=== PATIENT | female | born 1955 | race Caucasian/White ===

== ENCOUNTER 2023-10-27 14:00 | Outpatient (OUT) | payer MEDICARE, OTHER, SELFPAY ==
[2023-10-27 15:01] LABS: Basophils Absolute Auto 0.1 10^3/uL (0.0-0.1); Basophils Percent Auto 0.8 % (0.2-2.0); Eosinophils Absolute Auto 0.1 10^3/uL (0.0-0.7); Eosinophils Percent Auto 1.3 % (0.9-7.0); Hematocrit 41.2 % (36.0-48.0); Hemoglobin 13.6 g/dL (12.0-16.0); Immature Granulocytes Abs Auto 0.01 10^3/uL (0.00-0.03); Immature Granulocytes Pct Auto 0.2 % (0.0-0.5); Lymphocytes Absolute Auto 2.4 10^3/uL (1.2-3.8); Lymphocytes Percent Auto 38.1 % (20.5-60.0); Mean Corpuscular Hemoglobin 28.8 pg (26.7-34.0); Mean Corpuscular Volume 87.3 fL (81.0-99.0); Mean Platelet Volume 10.8 fL (9.5-13.5); Monocytes Absolute Auto 0.6 10^3/uL (0.3-0.8); Monocytes Percent Auto 9.8 % (1.7-12.0); Neutrophils Absolute Auto 3.1 10^3/uL (1.4-6.5); Neutrophils Percent Auto 49.8 % (43.0-75.0); Platelet Count 230 10^3/uL (150-450); Red Blood Count 4.72 10^6/uL (4.20-5.40); Red Cell Distribution Width 12.5 % (11.0-15.0); White Blood Count 6.3 10^3/uL (4.0-11.0)
[2023-10-27 15:02] LABS: Estimated Average Glucose 120 mg/dL; Glycohemoglobin A1C 5.8 % (4.5-6.2)
[2023-10-27 16:01] LABS: Alanine Aminotransferase 26 U/L (14-59); Albumin Globulin Ratio 1.2; Albumin Level 4.1 g/dL (3.4-5.0); Alkaline Phosphatase 72 U/L (46-116); Anion Gap 12.3; Aspartate Amino Transferase 20 U/L (15-37); BUN Creatinine Ratio 14.7; Bilirubin Total 0.7 mg/dL (0.2-1.0); Calcium 9.2 mg/dL (8.5-10.1); Carbon Dioxide 29.9 mmol/L (21.0-32.0); Chloride 105 mmol/L (98-107); Chol HDL Ratio 3.6; Cholesterol 242 mg/dL (<=200); Estimated GFR (African America >60 (>=60); Estimated GFR (Non-African Ame >60 (>=60); Free T3 2.72 pg/mL (2.18-3.98); Globulin 3.5 g/dL; Glucose 92 mg/dL (74-106); HDL Cholesterol 68 mg/dL (40-60); Potassium 4.2 mmol/L (3.5-5.1); Sodium 143 mmol/L (136-145); Thyroid Stimulating Hormone 2.705 uIU/mL (0.358-3.740); Total Protein 7.6 g/dL (6.4-8.2); Triglycerides 146 mg/dL (<=150); VLDL CHOLESTEROL 29.2 mg/dL
== END 2023-10-27 14:01 | disposition home or self-care (01) ==
LOC: LAB 14:03
PROVIDERS: PCP Family Medicine; Visit Provider Family Medicine
DX: J45.909 Unspecified asthma, uncomplicated (principal); I10 Essential (primary) hypertension; E78.00 Pure hypercholesterolemia, unspecified; R73.09 Other abnormal glucose; D64.9 Anemia, unspecified
CPT/HCPCS: 36415; 80053; 80061; 83036; 83540; 84436; 84443; 84481; 85025

== ENCOUNTER 2023-11-03 07:54 | Outpatient (OUT) | payer MEDICARE, OTHER, SELFPAY ==
--- NOTE | 2023-11-03 07:56 | MM_ITS ---
Patient Name: ADRIEN STATON MR#: [id number] : 1955 Exam Date: 11/03/2023 Ordering Doctor: DR KYARA MENSAH . RADIOLOGY REPORT PROCEDURE: MM TOMOSYNTHESIS SCREENING BI COMPARISON: MG MAMM SCREEN 3D JAYSON CAD, 04/23/2022. MG MAMM SCREEN 3D JAYSON CAD, 03/26/2021. MG MAMM SCREEN JAYSON W CAD, 01/12/2020. MG MAMM JAYSON SCRN W CAD DIG, 10/17/2013. INDICATIONS: Screening Calculator Name NCI Breast Cancer Risk Assessment Tool 5 Year Breast Cancer Risk 1.60% Lifetime Breast Cancer Risk 5.70% Personal Breast Cancer No Personal Ovarian Cancer No Treatments RLL removed Family Cancers Father with prostate cancer at age ~55. LOCATION: [facility] BREAST COMPOSITION: Heterogeneously dense,which may obscure small masses. FINDINGS: DIAGNOSTIC CATEGORY 2--BENIGN FINDING: RIGHT BREAST: No significant suspicious finding. Stable lymph node versus chronic nodule within subareolar medial breast. No significant change has occurred. LEFT BREAST: No significant suspicious finding. No significant change has occurred. RECOMMENDATIONS: ROUTINE MAMMOGRAM AND CLINICAL EVALUATION IN 12 MONTHS. PLEASE NOTE: A NORMAL MAMMOGRAM DOES NOT EXCLUDE THE POSSIBILITY OF BREAST CANCER. A CLINICALLY SUSPICIOUS PALPABLE LUMP SHOULD BE BIOPSIED. Dictated by: Pablito Banks M.D. on 11/04/2023 at 07:38 Approved by: Pablito Banks M.D. on 11/04/2023 at 07:42
--- OUTSIDE RECORDS SUMMARY | 2023-11-03 07:57 | XMS_ITS | CCD ---
Author Name Unknown Address [address] [place] [address] Organization [facility] Care Team Providers Care Fitness Management Director Name Role Phone Margaret Dodge Unavailable Unavailable Kyara Castro Unavailable Unavailable Margaret Dodge Unavailable Unavailable Kyara Castro Unavailable Unavailable RODRICK, DR SPARROW Primary Care Unavailable HOY, DR SPARROW Admitting Unavailable HOY, DR SPARROW Attending Unavailable MIKHAILY, DR SPARROW Consulting Unavailable RODRICK, DR SPARROW Primary Care Unavailable MIKHAILY, DR SPARROW Admitting Unavailable HOY, DR SPARROW Attending Unavailable HOY, DR SPARROW Consulting Unavailable MIKHAILY, DR SPARROW Primary Care Unavailable HOMariah, DR SPARROW Admitting Unavailable HOY, DR SPARROW Attending Unavailable WEST, DR GABRIEL Vicente Consulting Unavailable Kyara Castro Primary Care Unavailable Sahil Balderas Attending Unavailable Sahil Balderas Admitting Unavailable Eliel Haines Attending Unavaila Jai Guevara Attending Unavailable Kyara Castro Referring Unavailable Allergies Allergy Classification Reported Allergen(s) Allergy Type Date of Onset Reaction(s) Facility (2 sources) Sertraline Drug Allergy 05-05-2017 [facility] Repository (2 sources) Ciprofloxacin; Translations: [ciprofloxacin] Drug Allergy 09-07-2018 [facility] Medications Current Medications Medication Drug Class(es) Dates Sig (Normalized) Sig (Original) [id number] 200 actuat albuterol 0.09 mg/actuat metered dose inhaler (1 source) beta2-Adrenergic Agonist Start: 07-21-2018 take 1 puff(s) by inhalation every four to six hours Albuterol Sulfate (Proair Hfa) 90 mcg/actuation Hfa Aerosol Inhaler Active 2 PUFF INHALATION EVERY 4-6 HOURS July 21, 2018 1:00am metoprolol tartrate 25 mg oral tablet (1 source) beta-Adrenergic Judy Start: 2018 take 25 mg by mouth twice daily Metoprolol Tartrate Active 25 MG PO Twice daily 2018 1:00am omeprazole 40 mg delayed release oral capsule (1 source) Proton Pump Inhibitor Start: 2018 take 40 mg by mouth once daily Omeprazole Active 40 MG PO Daily 2018 1:00am Completed/Discontinued Medications Medication Drug Class(es) Dates Sig (Normalized) Sig (Original) acetaminophen 325 mg / HYDROcodone bitartrate 5 mg oral tablet (1 source) Opioid Agonist Start: 09-14-2018 End: 09-11-2019 take 2 tablets by mouth four times daily Hydrocodone-Acetam inophen Discontinued 2 TAB PO Four times daily 56 September 14, 2018 1:00am September 11, 2019 4:03pm amiodarone hydrochloride 200 mg oral tablet (1 source) Antiarrhythmic Start: 09-14-2018 End: 09-11-2019 take 200 mg by mouth twice daily Amiodarone Discontinued 200 MG PO Twice daily 90 September 14, 2018 1:00am September 11, 2019 4:03pm chlorhexidine gluconate 1.2 mg/ml mouthwash (1 source) Start: 09-14-2018 End: 09-11-2019 Chlorhexidine Gluconate Discontinued 15 ML MUCOUS MEM Three times daily 1 September 14, 2018 1:00am September 11, 2019 4:03pm raNITIdine 150 mg oral tablet (1 source) Histamine-2 Receptor Antagonist Start: 2018 End: 07-21-2018 take 150 mg by mouth twice daily Ranitidine Hcl Discontinued 150 MG PO Twice daily 2018 1:00am July 21, 2018 11:58am sulfamethoxazole 800 mg / trimethoprim 160 mg oral tablet (1 source) Dihydrofolate Reductase Inhibitor Antibacterial, Sulfonamide Antimicrobial Start: 09-14-2018 End: 09-26-2018 take 1 tablet by mouth twice daily Sulfamethoxazole-T rimethoprim Discontinued 1 TAB PO Twice daily 20 September 14, 2018 1:00am September 26, 2018 4:02pm Problems Problem Classification Problem Date Documented Date Episodic/Chronic Asthma (1 source) Asthma; Translations: [Unspecified asthma, uncomplicated] 07-21-2018 Chronic Cancer of bronchus; lung (2 sources) Malignant neoplasm of lower lobe, right bronchus or lung; Translations: [Primary adenocarcinoma of lower lobe of right lung] Onset: 04-24-2022 09-11-2019 Chronic Cardiac dysrhythmias (1 source) Atrial fibrillation with rapid ventricular response; Translations: [Unspecified atrial fibrillation] 09-11-2019 Chronic Cardiac dysrhythmias (1 source) Palpitations; Translations: [Palpitations] 09-11-2019 Episodic Gastroduodenal ulcer (except hemorrhage) (1 source) Peptic ulcer; Translations: [Peptic ulcer, site unspecified, unspecified as acute or chronic, without hemorrhage or perforation] 09-11-2019 Chronic Other connective tissue disease (1 source) Pain of left upper arm; Translations: [Pain in left upper arm] 09-11-2019 Episodic Other lower respiratory disease (1 source) Nodule of lung; Translations: [Solitary pulmonary nodule] 07-21-2018 Episodic Other screening for suspected conditions (not mental disorders or infectious disease) (4 sources) Encounter for screening mammogram for malignant neoplasm of breast; Translations: [ENC SCR MAMMO MALIG NEOPLASM BREAST] Onset: 04-23-2022 Episodic Residual codes; unclassified (1 source) Acquired absence of lung [part of]; Translations: [ACQUIRED ABSENCE OF LUNG] Onset: 04-24-2022 Episodic Residual codes; unclassified (1 source) History of lung lobectomy; Translations: [Acquired absence of lung [part of]] 09-11-2019 Episodic Results Test Name Value Interpretation Reference Range Facility Physician Referralon 024 Physician Referral [id number] [facility] Reminderson 06-29-2023 Reminders - From: Jennifer Calhoun MA To: Jennifer Calhoun MA; Sent: 06/24/2023 11:34:21 EDT Show up: 06/24/2023 11:34:00 EDT Subject: colon recall Reminder Message [address] Barger 06/23/13 first recall letter sent Patient refused appointment and is going somewhere else. Normal [facility] Patient Letter FTMCon 2022 Patient [place] [facility] [place] 24, 2023 ADRIEN WILD [address] [place] [address] : 1955 Dear Adrien, This is a reminder that you are due for an appointment with [facility]. Please contact our office at [phone] to schedule your 10 year colon recall Thank you, [facility] Normal [facility] CT ABDOMEN WO/W CONon 2021 CT ABDOMEN WO/W CON EXAMINATION: CT CHES T W CON, CT ABDOMEN WO/W CON HISTORY: Primary malignant neoplasm of lower lobe, bronchus or lung COMPARISON: 04/05/2021, 06/22/2018 TECHNIQUE: Axial, Coronal, and Sagittal CT images were obtained without and with IV contrast. Dose reduction techniques were achieved by using automated exposure control and/or adjustment of mA and/or kV according to patient size and/or use of iterative reconstruction technique. FINDINGS: LUNGS: Surgical clips from right lower lobectomy. Linear opacities in the right lung base postsurgical changes and/or scarring is favored. No new suspicious focal nodule or mass is observed. PLEURA: No mass or effusion. VASCULATURE: No visible pulmonary arterial thrombus or attenuation. RD: No mass or adenopathy. MEDIASTINUM: No mass or adenopathy. CARDIAC: No enlargement, pericardial thickening, or pericardial effusion. CHEST WALL: No mass or axillary adenopathy. LIVER: No enlargement, atrophy, abnormal density, or significant focal lesion. BILIARY: No dilatation or calcification. PANCREAS: No lesion, fluid collection, ductal dilatation, or atrophy. SPLEEN: No enlargement or focal lesion. ADRENALS: No mass or enlargement. KIDNEYS: No mass, obstruction, or calcification. BOWEL/MESENTERY: No visible mass, obstruction, or bowel wall thickening. AORTA/VASCULAR: No aneurysm. RETROPERITONEUM: No mass or adenopathy. ABDOMINAL WALL: No mass or hernia. BONES: No bony lesion or fracture. OTHER: Negative. IMPRESSION: Remote right lower lobe lobectomy No new evidence of metastatic disease to the chest or abdomen Electronically authenticated by: GABRIEL BOND Date: 2022-04-23 09:17 Normal [facility] MG MAMM SCREEN 3D JAYSON CADon 04-23-2022 MG MAMM SCREEN 3D JAYSON CAD Patient: ADRIEN STATON Exam Date: 04/23/2022 : 1955 Gender:F Ordering : DR KYARA CASTRO . Admission #: [id number] Family : Order #: [id number] CLICK HERE TO VIEW EXAM RADIOLOGY REPORT PROCEDURE: MAMMOGRAM SCREENING 3D BILATERAL CAD COMPARISON: MG MAMM SCREEN JAYSON W CAD, 01/12/2020. MG MAMM SCREEN 3D JAYSON CAD, 03/26/2021. INDICATIONS: Screening exam Calculator Name NCI Breast Cancer Risk Assessment Tool 5 Year Breast Cancer Risk 1.50% Lifetime Breast Cancer Risk 6.10% Personal Breast Cancer No Personal Ovarian Cancer No Treatments RLL removed Family Cancers Father with prostate cancer at age 55. LOCATION: [facility] BREAST COMPOSITION: Heterogeneously dense,which may obscure small masses. FINDINGS: DIAGNOSTIC CATEGORY 2--BENIGN FINDING. NO CHANGE FROM COMPARISON. Scattered benign-appearing calcifications are present. Scattered benign-appearing lymph nodes are present. RIGHT BREAST: No significant suspicious finding. Focal nodule lower inner anterior breast, stable LEFT BREAST: No significant suspicious finding. RECOMMENDATIONS: ROUTINE MAMMOGRAM AND CLINICAL EVALUATION IN 12 MONTHS. PLEASE NOTE: A NORMAL MAMMOGRAM DOES NOT EXCLUDE THE POSSIBILITY OF BREAST CANCER. A CLINICALLY SUSPICIOUS PALPABLE LUMP SHOULD BE BIOPSIED. Dictated by: Gabriel Bond MD on 04/23/2022 at 10:41 Approved by: Gabriel Bond MD on 04/23/2022 at 10:43 Normal [facility] CBC AUTO DIFFon 04-10-2022 BASO # 0.0 103/ul Normal 0.0-0.1 [facility] Comment on above: Performed By: #### C BC #### [facility] [address] [place] [address] Dr. Mariama Becerra Basophils/100 WBC (Bld) 0.6 % Normal 0.2-2.0 [facility] Comment on above: Performed By: #### C BC #### [facility] [address] [place] [address] Dr. Mariama Becerra EO # 0.1 103/ul Normal 0.0-0.7 [facility] Comment on above: Performed By: #### C BC #### [facility] [address] [place] [address] Dr. Mariama Becerra Eosinophils/100 WBC (Bld) 1.5 % Normal 0.9-7.0 [facility] Comment on above: Performed By: #### C BC #### [facility] [address] [place] [address] Dr. Mariama Becerra Erythrocyte distribution width (RBC) [Ratio] 12.7 % Normal 11.0-15.0 [facility] Comment on above: Performed By: #### C BC #### [facility] [address] [place] [address] Dr. Mariama Becerra Hematocrit (Bld) [Volume fraction] 40.3 % Normal 36.0-48.0 [facility] Comment on above: Performed By: #### C BC #### [facility] [address] [place] [address] Dr. Mariama Becerra Hemoglobin (Bld) [Mass/Vol] 13.6 g/dL Normal 12.0-16.0 [facility] Comment on above: Performed By: #### C BC #### [facility] [address] [place] [address] Dr. Mariama Becerra IG # 0.02 10e3/ul Normal 0.00-0.03 [facility] Comment on above: Performed By: #### C BC #### [facility] [address] [place] [address] Dr. Mariama Becerra IG % 0.4 % Normal 0.0-0.5 [facility] Comment on above: Performed By: #### C BC #### [facility] [address] [place] [address] Dr. Mariama Becerra LYMPH # 1.9 103/ul Normal 1.2-3.8 [facility] Comment on above: Performed By: #### C BC #### [facility] [address] [place] [address] Dr. Mariama Becerra Lymphocytes/100 WBC (Bld) 34.9 % Normal 20.5-60.0 [facility] Comment on above: Performed By: #### C BC #### [facility] [address] [place] [address] Dr. Mariama Becerra MANUAL DIFF REQ NO Normal [facility] Comment on above: Performed By: #### C BC #### [facility] [address] [place] [address] Dr. Mariama Becerra MCH (RBC) [Entitic mass] 29.4 pg Normal 26.7-34.0 [facility] Comment on above: Performed By: #### C BC #### [facility] [address] [place] [address] Dr. Mariama Becerra MCHC (RBC) [Mass/Vol] 33.7 g/dL Normal 29.9-35.2 [facility] Comment on above: Performed By: #### C BC #### [facility] [address] [place] [address] Dr. Mariama Becerra MCV (RBC) [Entitic vol] 87.0 fL Normal 81.0-99.0 [facility] Comment on above: Performed By: #### C BC #### [facility] [address] [place] [address] Dr. Mariama Becerra MONO # 0.6 103/ul Normal 0.3-0.8 [facility] Comment on above: Performed By: #### C BC #### [facility] [address] [place] [address] Dr. Mariama Becerra Monocytes/100 WBC (Bld) 11.2 % Normal 1.7-12.0 [facility] Comment on above: Performed By: #### C BC #### [facility] [address] [place] [address] Dr. Mariama Becerra NEUT # 2.8 103/ul Normal 1.4-6.5 [facility] Comment on above: Performed By: #### C BC #### [facility] [address] [place] [address] Dr. Mariama Becerra Neutrophils/100 WBC (Bld) 51.4 % Normal 43.0-75.0 [facility] Comment on above: Performed By: #### C BC #### [facility] [address] [place] [address] Dr. Mariama Becerra Platelet mean volume (Bld) [Entitic vol] 9.9 fL Normal 9.5-13.5 [facility] Comment on above: Performed By: #### C BC #### [facility] [address] [place] [address] Dr. Mariama Becerra PLT 217 103/ul Normal 150-450 [facility] Comment on above: Performed By: #### C BC #### [facility] [address] [address] [address] Mariama Becerra RBC 4.63 106/ul Normal 4.20-5.40 [facility] Comment on above: Performed By: #### C BC #### [facility] [address] [place] [address] Dr. Mariama Becerra WBC 5.4 103/ul Normal 4.0-11.0 [facility] Comment on above: Performed By: #### C BC #### [facility] [address] [place] [address] Dr. Mariama Becerra FREE THYROXINE INDEX T7on FTI 2.81 Normal 1.30-4.50 [facility] Comment on above: Performed By: #### T SH, T7, LIPID, CMP #### [facility] [address] [place] [address] Dr. Mariama Becerra T3U 33.0 % Normal 30.0-39.0 [facility] Comment on above: Performed By: #### T SH, T7, LIPID, CMP #### [facility] [address] [place] [address] Dr. Mariama Becerra T4 [Mass/Vol] 8.50 ug/dL Normal 4.80-13.90 [facility] Comment on above: Performed By: #### T SH, T7, LIPID, CMP #### [facility] [address] [place] [address] Dr. Mariama Becerra GLYCOHEMOGLOBIN A1Con 2021 ADA RECOMMENDATION SEE BELOW Normal [facility] Comment on above: Result Comment: ADA RECOMMENDED LIMIT 4.0 - 6.0 ADA THERAPEUTIC TARGET < 7.0 ACTION SUGGESTED > 7.0 Performed By: #### A 1C #### [facility] [address] [address] [address] Mariama Becerra Glucose [Mass/Vol] 117 mg/dL Normal [facility] Comment on above: Performed By: #### A 1C #### [facility] [address] [place] [address] Dr. Mariama Becerra HbA1c (Bld) [Mass fraction] 5.7 % Normal 4.5-6.2 [facility] Comment on above: Performed By: #### A 1C #### [facility] [address] [place] [address] Dr. Mariama Becerra IRONon 04-10-2022 Iron [Mass/Vol] 88.0 ug/dL Normal 50.0-170.0 [facility] Comment on above: Performed By: #### I ANGEL #### [facility] [address] [place] [address] Dr. Mariama Becerra LIPID PROFILEon 04-10-2022 CHOL-HDL RATIO NORM SEE BELOW Normal [facility] Comment on above: Result Comment: 3.3 - 4.4 LOW RISK 4.4 - 7.1 AVERAGE RISK 7.1 - 11.0 MODERATE RISK >11.0 HIGH RISK Performed By: #### T SH, T7, LIPID, CMP #### [facility] [address] [place] [address] Dr. Mariama Becerra Cholesterol [Mass/Vol] 136 mg/dL Normal <=200 [facility] Comment on above: Performed By: #### T SH, T7, LIPID, CMP #### [facility] [address] [place] [address] Dr. Mariama Becerra Cholesterol in HDL [Mass/Vol] 63 mg/dL Critically high 40-60 [facility] Comment on above: Performed By: #### T SH, T7, LIPID, CMP #### [facility] [address] [place] [address] Dr. Mariama Becerra Cholesterol in LDL [Mass/Vol] 58.8 mg/dL Normal [facility] Comment on above: Performed By: #### T SH, T7, LIPID, CMP #### [facility] [address] [place] [address] Dr. Mariama Becerra Cholesterol.total/Cho lesterol in HDL [Mass ratio] 2.2 {ratio} Normal [facility] Comment on above: Performed By: #### T SH, T7, LIPID, CMP #### [facility] [address] [address] [address] Mariama Becerra HDL NORMAL > or = 60 mg/dl - LO W CARDIOVASCULAR RISK <40 mg/dl - HIGH CARDIOVASCULAR RISK Normal [facility] Comment on above: Performed By: #### T SH, T7, LIPID, CMP #### [facility] [address] [place] [address] Dr. Mariama Becerra LDL CALC NORMAL SEE BELOW Normal [facility] Comment on above: Result Comment: <100 mg/dl OPTIMAL 100 - 129 mg/dl NEAR OR ABOVE OPTIMAL 130 - 159 mg/dl BORDERLINE HIGH 160 - 189 mg/dl HIGH >190 mg/dl VERY HIGH Performed By: #### T SH, T7, LIPID, CMP #### [facility] [address] [place] [address] Dr. Mariama Becerra Triglyceride [Mass/Vol] 71 mg/dL Normal <=150 [facility] Comment on above: Performed By: #### T SH, T7, LIPID, CMP #### [facility] [address] [place] [address] Dr. Mariama Becerra VLDL CALC 14.2 mg/dL Normal [facility] Comment on above: Performed By: #### T SH, T7, LIPID, CMP #### [facility] [address] [place] [address] Dr. Mariama Becerra PROF 14(COMP METB)on 022 Albumin [Mass/Vol] 4.2 g/dL Normal 3.4-5.0 [facility] Comment on above: Performed By: #### T SH, T7, LIPID, CMP #### [facility] [address] [place] [address] Dr. Mariama Becerra Albumin/Globulin [Mass ratio] 1.3 {ratio} Normal [facility] Comment on above: Performed By: #### T SH, T7, LIPID, CMP #### [facility] [address] [place] [address] Dr. Mariama Becerra ALP [Catalytic activity/Vol] 65 U/L Normal 46-116 [facility] Comment on above: Performed By: #### T SH, T7, LIPID, CMP #### [facility] [address] [address] [address] Mariama Becerra ALT [Catalytic activity/Vol] 20 U/L Normal 14-59 [facility] Comment on above: Performed By: #### T SH, T7, LIPID, CMP #### [facility] [address] [place] [address] Dr. Mariama Becerra Anion gap [Moles/Vol] 8.1 mmol/L Normal [facility] Comment on above: Performed By: #### T SH, T7, LIPID, CMP #### [facility] [address] [place] [address] Dr. Mariama Becerra AST [Catalytic activity/Vol] 15 U/L Normal 15-37 [facility] Comment on above: Performed By: #### T SH, T7, LIPID, CMP #### [facility] [address] [place] [address] Dr. Mariama Becerra Bilirubin [Mass/Vol] 0.7 mg/dL Normal 0.2-1.0 [facility] Comment on above: Performed By: #### T SH, T7, LIPID, CMP #### [facility] [address] [place] [address] Dr. Mariama Becerra Calcium [Mass/Vol] 9.2 mg/dL Normal 8.5-10.1 [facility] Comment on above: Performed By: #### T SH, T7, LIPID, CMP #### [facility] [address] [place] [address] Dr. Mariama Becerra Chloride [Moles/Vol] 106 mmol/L Normal 98-107 [facility] Comment on above: Performed By: #### T SH, T7, LIPID, CMP #### [facility] [address] [place] [address] Dr. Mariama Becerra CO2 [Moles/Vol] 32.5 mmol/L Critically high 21.0-32.0 [facility] Comment on above: Performed By: #### T SH, T7, LIPID, CMP #### [facility] [address] [address] [address] Mariama Becerra Creatinine [Mass/Vol] 0.71 mg/dL Normal 0.55-1.02 [facility] Comment on above: Performed By: #### T SH, T7, LIPID, CMP #### [facility] [address] [address] [address] Mariama Becerra EGFR-AF WALLISIAN >60 Normal >=60 [facility] Comment on above: Performed By: #### T SH, T7, LIPID, CMP #### [facility] [address] [address] [address] Mariama Becerra EGFR-NON AF WALLISIAN >60 Normal >=60 [facility] Comment on above: Performed By: #### T SH, T7, LIPID, CMP #### [facility] [address] [address] [address] Mariama Becerra Globulin (S) [Mass/Vol] 3.2 g/dL Normal [facility] Comment on above: Performed By: #### T SH, T7, LIPID, CMP #### [facility] [address] [address] [address] Mariama Becerra Glucose [Mass/Vol] 99 mg/dL Normal 74-106 [facility] Comment on above: Performed By: #### T SH, T7, LIPID, CMP #### [facility] [address] [address] [address] Mariama Becerra Potassium [Moles/Vol] 4.6 mmol/L Normal 3.5-5.1 [facility] Comment on above: Performed By: #### T SH, T7, LIPID, CMP #### [facility] [address] [address] [address] Mariama Becerra Protein [Mass/Vol] 7.4 g/dL Normal 6.4-8.2 [facility] Comment on above: Performed By: #### T SH, T7, LIPID, CMP #### [facility] [address] [address] [address] Mariama Becerra Sodium [Moles/Vol] 142 mmol/L Normal 136-145 [facility] Comment on above: Performed By: #### T SH, T7, LIPID, CMP #### [facility] [address] [address] [address] Mariama Becerra Urea nitrogen [Mass/Vol] 12.0 mg/dL Normal 7.0-18.0 [facility] Comment on above: Performed By: #### T SH, T7, LIPID, CMP #### [facility] [address] [address] [address] Mariama Becerra Urea nitrogen/Creatinine [Mass ratio] 16.9 mg/mg Normal [facility] Comment on above: Performed By: #### T SH, T7, LIPID, CMP #### [facility] [address] [address] [address] Mariama Becerra TSHon 04-10-2022 TSH 1.909 uIU/mL Normal 0.358-3.740 [facility] Comment on above: Performed By: #### T SH, T7, LIPID, CMP #### [facility] [address] [address] [address] Mariama Becerra Encounters Encounter Date Encounter Type Care Provider Facility Start: 11-24-2023 ambulatory Jai RITCHIE Facility :[facility] Start: 10-29-2023 ambulatory Eliel Carcamo ty:[facility] Start: 06-24-2023 ambulatory Eliel Haines Facility:[facility] Start: 04-23-2022 End: 04-24-[address] KYARA CASTRO Facility:[facility] Start: 04-16-2022 Encounter for genera l adult medical examination without abnormal findings DR KYARA CASTRO [facility] Start: 04-10-2022 End: 04-11-[address] KYARA CASTRO Facility:[facility] Start: 04-10-2022 End: 04-11-2022 Encounter for general adult medical examination without abnormal findings DR KYARA CASTRO Facility:[facility] Start: 03-19-[address] KYARA CASTRO Facility :[facility] Start: 11-28-2019 End: 11-28-2019 ambulatory Kyara Castro Facility:[facility] Start: 07-29-2018 Patient encounter procedure Margaret Dodge Facility:[id number] Start: 07-21-2018 Patient encounter procedure Margaret Dodge Facility:[id number] Payers Date Payer Category Payer Medicare [id number] 2023 Unknown [id number] 2019 Medicaid [id number] 1957 Self-pay 1957 Unknown [id number] 1955 Unknown [id number] 1957 Unknown [id number] 2.16. [id number] 1957 Unknown [id number] 2.16.84 [id number] 1957 Unknown [id number] 2.16.84 [id number] 1957 Unknown [id number] 2.16.84 [id number] 1957 Unknown [id number] 2.16.8 [id number] Unknown [id number] 2.16.84 [id number] Social History Date Type Detail Facility Tobacco smoking stat [facility] Unknown if ever smoked [facility] Work Phone: Start: 1955 Sex Assigned At Female F [facility] Medical Equipment Procedure Code Equipment Code Equipment Origin al Text Equipment Identifier Dates Thoracotomy PROGEL PLEURAL A IR LEAK FDA Start: 09-07-2018 Evaluation note Note Date & Type Note Facility Evaluation note No assessment information availa ble [facility] Work Phone: Summary Purpose Family History No Family History Records FoundNo Family History Records FoundNo Family History Records FoundNo Family History Records Found Advance Directives No Advanced Directives Records FoundNo Advanced Directives Records FoundNo Advanced Directives Records FoundNo Advanced Directives Records Found Additional Source Comments INFORMATION SOURCE (unrecogn ized section and content) DATE CREATED AUTHOR 08/22/2018 [facility] DATE CREATED AUTHOR AUTHOR'S ORGANIZ ATION 04/25/2022 [facility] DATE CREATED AUTHOR AUTHOR'S ORGANIZ ATION 05/15/2023 [facility] DATE CREATED AUTHOR AUTHOR'S ORGANIZ ATION 11/01/2023 [facility] Goals (unrecognized section and content) Goals may be documented in a n alternate section FOR RECORDS PERTAINING TO PATIENTS WHO ARE OR HAVE BEEN ENROLLED IN A CHEMICAL DEPENDENCY/SUBSTANCEABUSE PROGRAM, SOME INFORMATION MAY BE OMITTED. This clinical summary was aggregated from multiple sources. Caution should be exercised in using it in the provision of clinical care. This summary normalizes information from multiple sources, and as a consequence, information in this document may materially change the coding, format and clinical context of patient data. In addition, data may be omitted in some cases. CLINICAL DECISIONS SHOULD BE BASED ON THE PRIMARY CLINICAL RECORDS. [employer] provides no warranty or guarantee of the accuracy or completeness of information in this document.
== END 2023-11-03 07:55 | disposition home or self-care (01) ==
LOC: MAMMO 07:54
PROVIDERS: PCP Family Medicine; Visit Provider Family Medicine
DX: Z12.31 Encounter for screening mammogram for malignant neoplasm of breast (principal); Z80.42 Family history of malignant neoplasm of prostate
CPT/HCPCS: 77063; 77067

== ENCOUNTER 2023-12-07 08:18 | Outpatient (OUT) | payer MEDICARE, OTHER, SELFPAY ==
--- OUTSIDE RECORDS SUMMARY | 2023-12-07 08:22 | XMS_ITS | CCD ---
Author Organization [facility] Care Team Providers Care [employer] Officer Name Role Phone Margaret Dodge Unavailable Unavailable Kyara Castro Unavailable Unavailable Margaret Dodge Unavailable Unavailable Kyara Castro Unavailable Unavailable RODRICK, DR SPARROW Primary Care Unavailable MIKHAILY, DR SPARROW Admitting Unavailable HOY, DR SPARROW Attending Unavailable HOY, DR SPARROW Consulting Unavailable MIKHAILY, DR SPARROW Primary Care Unavailable MIKHAILY, DR SPARROW Admitting Unavailable MIKHAILY, DR SPARROW Attending Unavailable RODRICK, DR SPARROW Consulting Unavailable RODRICK, DR SPARROW Primary Care Unavailable MIKHAILY, DR SPARROW Admitting Unavailable MIKHAILY, DR SPARROW Attending Unavailable WEST, DR GABRIEL Vicente Consulting Unavailable Kyara Castro Primary Care Unavailable Sahil Balderas Attending Unavailable Sahil Balderas Admitting Unavailable Kyara Castro Primary Care Physician lEiel Haines Attending Unavaila Jai Guevara Attending Unavailable Kyara Castro Referring Unavailable Allergies Allergy Classification Reported Allergen(s) Allergy Type Date of Onset Reaction(s) Facility (2 sources) Sertraline Drug Allergy 7 [facility] Repository (3 sources) Ciprofloxacin; Translations: [ciprofloxacin] Drug Allergy 8 Eruption of skin (disorder) [facility] (1 source) Ciprofloxacin; Translations: [Cipro] Drug Allergy [facility] Repository Medications Current Medications Medication Drug Class(es) Dates Sig (Normalized) Sig (Original) Albuterol (2 sources) beta2-Adrenergic Agonist Start: 11-10-2023 take 2 puff(s) by inhalation every four hours Albuterol (Eqv-ProAir HFA) 2 puff(s), Inhalation, q4hr Shortness of breath or wheezing, Refill(s) 0 Start Date: 11/10/23 Status: Ordered Start: 07-21-2018 take 1 puff(s) by in halation every four to six hours Albuterol Sulfate (Proair Hfa) 90 mcg/actuation Hfa Aerosol Inhaler Active 2 PUFF INHALATION EVERY 4-6 HOURS July 21, 2018 1:00am metoprolol tartrate 50 mg oral tablet (2 sources) beta-Adrenergic Judy Start: 11-10-2023 take 1 tablet by mouth twice daily Metoprolol tartrate 50 mg Tab 50 mg = 1 tab(s), Oral, BID, Refills(s) 0 Start Date: 11/10/23 Status: Ordered Start: 2018 take 25 mg by mouth twice prabha y Metoprolol Tartrate Active 25 MG PO Twice [...] 2 TAB PO Four times daily 56 7 September 14, 2018 1:00am September 11, 2019 4:03pm amiodarone hydrochloride 200 mg oral tablet (1 source) Antiarrhythmic Start: 09-14-2018 End: 09-11-2019 take 200 mg by mouth twice daily Amiodarone Discontinued 200 MG PO Twice daily 90 45 September 14, 2018 1:00am September 11, 2019 4:03pm chlorhexidine gluconate 1.2 mg/ml mouthwash (1 source) Start: 09-14-2018 End: 09-11-2019 Chlorhexidine Gluconate Discontinued 15 ML MUCOUS MEM Three times daily 1 14 September 14, 2018 1:00am September 11, 2019 [...] Classification Problem Date Documented Date Episodic/Chronic Asthma (2 sources) Asthma; Translations: [Unspecified asthma, uncomplicated] 07-21-2018 Chronic Cancer of bronchus; lung (3 sources) Malignant neoplasm of lower lobe, right bronchus or lung; Translations: [Primary adenocarcinoma of lower lobe of right lung] Onset: 2 09-11-2019 Chronic Cardiac dysrhythmias (2 sources) Atrial fibrillation with rapid ventricular response; Translations: [Unspecified atrial fibrillation] 09-11-2019 Chronic Cardiac dysrhythmias (1 source) Palpitations; Translations: [Palpitations] 09-11-2019 Episodic Disorders of lipid metabolism (1 source) Hypercholesterolemia 11-10-2023 Chronic Essential hypertension (1 source) Essential hypertension Onset: 7 11-10-2023 Chronic Gastroduodenal ulcer (except hemorrhage) (1 source) Peptic ulcer; Translations: [Peptic ulcer, site unspecified, unspecified as acute or chronic, without hemorrhage or perforation] 09-11-2019 Chronic Other connective tissue disease (1 source) Pain of left upper arm; Translations: [Pain in left upper arm] 09-11-2019 Episodic Other lower respiratory disease (1 source) Nodule of lung; Translations: [Solitary pulmonary nodule] 07-21-2018 Episodic Other nutritional; endocrine; and metabolic disorders (1 source) Overweight 11-24-2023 Episodic Other nutritional; endocrine; and metabolic disorders (1 source) Overweight in adulthood with body mass index of 25 or more but less than 30 11-24-2023 Episodic Other screening for suspected conditions (not mental disorders or infectious disease) (5 sources) Encounter for screening mammogram for malignant neoplasm of breast; Translations: [Screening for malignant neoplasm of colon done] Onset: 2 Episodic Residual codes; unclassified (1 source) Acquired absence of lung [part of]; Translations: [ACQUIRED ABSENCE OF LUNG] Onset: 2 Episodic Residual codes; unclassified (1 source) History of lung lobectomy; Translations: [Acquired absence of lung [part of]] 09-11-2019 Episodic Unclassified (1 source) Patient encounter status 11-24-2023 Results Test Name Value Interpretation Reference Range Facility Consent for Procedure/Surger yon 11-25-2023 Consent for Procedure/Surgery [id number] .00TIFF Normal [facility] Facesheeton 11-25-2023 Facesheet [id number] .00TIFF Normal [facility] Ambulatory Visit Summaryon 0 11-24-2023 Ambulatory Visit Summary ADRIEN STATON :1955 Visit Date:11/24/2023 Ambulatory Visit Instructions Your Care Team Attending Physician - Jai RITCHIE MD Primary Care Physician - Kyara Castro MD Referring Physician - Kyara Castro MD This Is Your Medications List Contact prescribing physician if questions or concerns albuterol (Albuterol (Eqv-ProAir HFA)) metoprolol (Metoprolol tartrate 50 mg Tab) Procedures Performed Colonoscopy (06/23/2013), Abdominal hysterectomy, Biopsy of lung, Excision of lipoma of back, Lobectomy of lower lobe of right lung. Discharge Vitals Heart Rate (Peripheral) 72 Respiratory Rate 16 Blood Pressure 124/74 Height 152.4 cm Height 60 in Weight 63.9 kg Weight 140.58 lb BMI 27.51 Medications What How Much When Instructions Unchanged albuterol (Albuterol (Eqv-ProAir HFA)) 2 Puffs Inhalation Every 4 hours as needed for Shortness of breath or wheezing Contact prescribing physician if questions or concerns Unchanged metoprolol (Metoprolol tartrate 50 mg Tab) 1 Tablets By Mouth 2 times a day Contact prescribing physician if questions or concerns Medications and Immunizations Administered Not Given influenza virus vaccine, inactivated, Patient Refuses Allergies Cipro (Rash) Problems Ongoing - Any problem that you are currently receiving treatment for. Adenocarcinoma, lung Asthma Atrial fibrillation BMI 27.0-27.9,adult Essential hypertension Hypercholesterolemia Overweight Patient Survey You may receive a survey via text or e-mail asking about your office visit. Please share your experience with us by completing your survey. We appreciate your feedback and thank you for choosing us for your care. Normal [facility] Physician Referralon 024 Physician Referral [id number] .00TIFF Normal [facility] Reminderson 06-29-2023 Reminders - From: Jennifer Calhoun MA To: Jennifer Calhoun MA; Sent: 06/24/2023 11:34:21 EDT Show up: 06/24/2023 11:34:00 EDT Subject: colon recall Reminder Message [address] Barger 06/23/13 first recall letter sent Patient refused appointment and is going somewhere else. Normal [facility] Patient Letter FTMCon 2022 Patient Letter [facility] June 24, 2023 ADRIEN WILD [address] [place] [id number] : 1955 Dear Adrien, This is a reminder that you are due for an appointment with [facility]. Please contact our office at [phone] to schedule your 10 year colon recall Thank you, [facility] Normal [facility] CT ABDOMEN WO/W CONon 2021 CT ABDOMEN [...] by: GABRIEL BOND Date: 2022-04-23 09:17 Normal [facility] MAMM SCREEN 3D JAYSON CADon 04-23-2022 MG MAMM SCREEN 3D JAYSON CAD Patient: ADRIEN STATON Exam Date: 04/23/2022 : 1955 Gender:F Ordering : DR KYARA CASTRO . Admission #: [id number] Family : Order #: [id number] CLICK HERE TO VIEW EXAM RADIOLOGY REPORT [...] prostate cancer at age 57. LOCATION: [facility] BREAST COMPOSITION: Heterogeneously dense,which may obscure small [...] MD on 04/23/2022 at 10:43 Normal [facility] CBC AUTO DIFFon 04-10-2022 BASO # 0.0 103/ul Normal 0.0-0.1 [facility] Comment on above: Performed By: #### C BC #### [facility] [address] [place] [address] Dr. Mariama Becerra Basophils/100 WBC (Bld) 0.6 % Normal 0.2-2.0 [facility] Comment on above: Performed By: #### C BC #### [facility] [address] [place] [address] Dr. Mariama Becerra EO # 0.1 103/ul Normal 0.0-0.7 [facility] Comment on above: Performed By: #### C BC #### [facility] [address] [place] [address] Dr. Mariama Becerra Eosinophils/100 WBC (Bld) 1.5 % Normal 0.9-7.0 [facility] Comment on above: Performed By: #### C BC #### [facility] [address] [place] [address] Dr. Mariama Becerra Erythrocyte distribution width (RBC) [Ratio] 12.7 % Normal 11.0-15.0 [facility] Comment on above: Performed By: #### C BC #### [facility] [address] [place] [address] Dr. Mariama Becerra Hematocrit (Bld) [Volume fraction] 40.3 % Normal 36.0-48.0 [facility] Comment on above: Performed By: #### C BC #### [facility] [address] [place] [address] Dr. Mariama Becerra Hemoglobin (Bld) [Mass/Vol] 13.6 g/dL Normal 12.0-16.0 [facility] Comment on above: Performed By: #### C BC #### [facility] [address] [place] [address] Dr. Mariama Becerra IG # 0.02 10e3/ul Normal 0.00-0.03 [facility] Comment on above: Performed By: #### C BC #### [facility] [address] [place] [address] Dr. Mariama Becerra IG % 0.4 % Normal 0.0-0.5 [facility] Comment on above: Performed By: #### C BC #### [facility] [address] [place] [address] Dr. Mariama Becerra LYMPH # 1.9 103/ul Normal 1.2-3.8 [facility] Comment on above: Performed By: #### C BC #### [facility] [address] [place] [address] Dr. Mariama Becerra Lymphocytes/100 WBC (Bld) 34.9 % Normal 20.5-60.0 [facility] Comment on above: Performed By: #### C BC #### [facility] [address] [place] [address] Dr. Mariama Becerra MANUAL DIFF REQ NO Normal [facility] Comment on above: Performed By: #### C BC #### [facility] [address] [place] [address] Dr. Mariama Becerra MCH (RBC) [Entitic mass] 29.4 pg Normal 26.7-34.0 [facility] Comment on above: Performed By: #### C BC #### [facility] [address] [place] [address] Dr. Mariama Becerra MCHC (RBC) [Mass/Vol] 33.7 g/dL Normal 29.9-35.2 [facility] Comment on above: Performed By: #### C BC #### [facility] [address] [place] [address] Dr. Mariama Becerra MCV (RBC) [Entitic vol] 87.0 fL Normal 81.0-99.0 [facility] Comment on above: Performed By: #### C BC #### [facility] [address] [place] [address] Dr. Mariama Becerra MONO # 0.6 103/ul Normal 0.3-0.8 [facility] Comment on above: Performed By: #### C BC #### [facility] [address] [place] [address] Dr. Mariama Becerra Monocytes/100 WBC (Bld) 11.2 % Normal 1.7-12.0 [facility] Comment on above: Performed By: #### C BC #### [facility] [address] [place] [address] Dr. Mariama Becerra NEUT # 2.8 103/ul Normal 1.4-6.5 [facility] Comment on above: Performed By: #### C BC #### [facility] [address] [place] [address] Dr. Mariama Becerra Neutrophils/100 WBC (Bld) 51.4 % Normal 43.0-75.0 [facility] Comment on above: Performed By: #### C BC #### [facility] [address] [place] [address] Dr. Mariama Becerra Platelet mean volume (Bld) [Entitic vol] 9.9 fL Normal 9.5-13.5 [facility] Comment on above: Performed By: #### C BC #### [facility] [address] [place] [address] Dr. Mariama Becerra PLT 217 103/ul Normal 150-450 [facility] Comment on above: Performed By: #### C BC #### [facility] [address] [place] [address] Dr. Mariama Becerra RBC 4.63 106/ul Normal 4.20-5.40 [facility] Comment on above: Performed By: #### C BC #### [facility] [address] [place] [address] Dr. Mariama Becerra WBC 5.4 103/ul Normal 4.0-11.0 [facility] Comment on above: Performed By: #### C BC #### [facility] [address] [place] [address] Dr. Mariama Becerra FREE THYROXINE INDEX T7on FTI 2.81 Normal 1.30-4.50 [facility] Comment on above: Performed By: #### T SH, T7, LIPID, CMP #### [facility] [address] [place] [address] Dr. Mariama Becerra T3U 33.0 % Normal 30.0-39.0 [facility] Comment on above: Performed By: #### T SH, T7, LIPID, CMP #### [facility] [address] [address] [address] Mariama Becerra T4 [Mass/Vol] 8.50 ug/dL Normal 4.80-13.[address] [facility] Comment on above: Performed By: #### T SH, T7, LIPID, CMP #### [facility] [address] [address] [address] Mariama Becerra GLYCOHEMOGLOBIN A1Con 2021 ADA RECOMMENDATION SEE BELOW Normal [facility] Comment on above: Result Comment: ADA RECOMMENDED LIMIT 4.0 - 6.0 ADA THERAPEUTIC TARGET < 7.0 ACTION SUGGESTED > 7.0 Performed By: #### A 1C #### [facility] [address] [address] [address] Mariama Becerra Glucose [Mass/Vol] 117 mg/dL Normal [facility] Comment on above: Performed By: #### A 1C #### [facility] [address] [address] [address] Mariama Becerra HbA1c (Bld) [Mass fraction] 5.7 % Normal 4.5-6.2 [facility] Comment on above: Performed By: #### A 1C #### [facility] [address] [place] [address] Dr. Mariama Becerra IRONon 04-10-2022 Iron [Mass/Vol] 88.0 ug/dL Normal 50.0-170.0 [facility] Comment on above: Performed By: #### I ANGEL #### [facility] [address] [address] [address] Mariama Becerra LIPID PROFILEon 04-10-2022 CHOL-HDL RATIO NORM SEE BELOW Normal [facility] Comment on above: Result Comment: 3.3 - 4.4 LOW RISK 4.4 - 7.1 AVERAGE RISK 7.1 - 11.0 MODERATE RISK >11.0 HIGH RISK Performed By: #### T SH, T7, LIPID, CMP #### [facility] [address] [address] [address] Mariama Becerra Cholesterol [Mass/Vol] 136 mg/dL Normal <=200 [facility] Comment on above: Performed By: #### T SH, T7, LIPID, CMP #### [facility] [address] [address] [address] Mariama Becerra Cholesterol in HDL [Mass/Vol] 63 mg/dL Critically high 40-60 [facility] Comment on above: Performed By: #### T SH, T7, LIPID, CMP #### [facility] [address] [address] [address] Mariama Becerra Cholesterol in LDL [Mass/Vol] 58.8 mg/dL Normal [facility] Comment on above: Performed By: #### T SH, T7, LIPID, CMP #### [facility] [address] [address] [address] Mariama Becerra Cholesterol.total/Cho lesterol in HDL [Mass ratio] 2.2 {ratio} Normal [facility] Comment on above: Performed By: #### T SH, T7, LIPID, CMP #### [facility] [address] [address] [address] Mariama Becerra HDL NORMAL > or = 60 mg/dl - LO W CARDIOVASCULAR RISK <40 mg/dl - HIGH CARDIOVASCULAR RISK Normal [facility] Comment on above: Performed By: #### T SH, T7, LIPID, CMP #### [facility] [address] [address] [address] Mariama Becerra LDL CALC NORMAL SEE BELOW Normal [facility] Comment on above: Result Comment: <100 mg/dl OPTIMAL 100 - 129 mg/dl NEAR OR ABOVE OPTIMAL 130 - 159 mg/dl BORDERLINE HIGH 160 - 189 mg/dl HIGH >190 mg/dl VERY HIGH Performed By: #### T SH, T7, LIPID, CMP #### [facility] [address] [address] [address] Mariama Becerra Triglyceride [Mass/Vol] 71 mg/dL Normal <=150 [facility] Comment on above: Performed By: #### T SH, T7, LIPID, CMP #### [facility] [address] [address] [address] Mariama Becerra VLDL CALC 14.2 mg/dL Normal [facility] Comment on above: Performed By: #### T SH, T7, LIPID, CMP #### [facility] [address] [address] [address] Mariama Becerra PROF 14(COMP METB)on 022 Albumin [Mass/Vol] 4.2 g/dL Normal 3.4-5.0 [facility] Comment on above: Performed By: #### T SH, T7, LIPID, CMP #### [facility] [address] [place] [address] Dr. Mariama Becerra Albumin/Globulin [Mass ratio] 1.3 {ratio} Normal [facility] Comment on above: Performed By: #### T SH, T7, LIPID, CMP #### [facility] [address] [place] [address] Dr. Mariama Becerra ALP [Catalytic activity/Vol] 65 U/L Normal 46-116 [facility] Comment on above: Performed By: #### T SH, T7, LIPID, CMP #### [facility] [address] [place] [address] Dr. Mariama Becerra ALT [Catalytic activity/Vol] 20 U/L Normal 14-59 [facility] Comment on above: Performed By: #### T SH, T7, LIPID, CMP #### [facility] [address] [place] [address] Dr. Mariama Becerra Anion gap [Moles/Vol] 8.1 mmol/L Normal [facility] Comment on above: Performed By: #### T SH, T7, LIPID, CMP #### [facility] [address] [place] [address] Dr. Mariama Becerra AST [Catalytic activity/Vol] 15 U/L Normal 15-37 [facility] Comment on above: Performed By: #### T SH, T7, LIPID, CMP #### [facility] [address] [place] [address] Dr. Mariama Becerra Bilirubin [Mass/Vol] 0.7 mg/dL Normal 0.2-1.0 [facility] Comment on above: Performed By: #### T SH, T7, LIPID, CMP #### [facility] [address] [address] [address] Mariama Becerra Calcium [Mass/Vol] 9.2 mg/dL Normal 8.5-10.1 [facility] Comment on above: Performed By: #### T SH, T7, LIPID, CMP #### [facility] [address] [place] [address] Dr. Mariama Becerra Chloride [Moles/Vol] 106 mmol/L Normal 98-107 [facility] Comment on above: Performed By: #### T SH, T7, LIPID, CMP #### [facility] [address] [place] [address] Dr. Mariama Becerra CO2 [Moles/Vol] 32.5 mmol/L Critically high 21.0-32.0 [facility] Comment on above: Performed By: #### T SH, T7, LIPID, CMP #### [facility] [address] [place] [address] Dr. Mariama Becerra Creatinine [Mass/Vol] 0.71 mg/dL Normal 0.55-1.02 [facility] Comment on above: Performed By: #### T SH, T7, LIPID, CMP #### [facility] [address] [place] [address] Dr. Mariama Becerra EGFR-AF SAO TOMEAN >60 Normal >=60 [facility] Comment on above: Performed By: #### T SH, T7, LIPID, CMP #### [facility] [address] [place] [address] Dr. Mairama Becerra EGFR-NON AF SAO TOMEAN >60 Normal >=60 [facility] Comment on above: Performed By: #### T SH, T7, LIPID, CMP #### [facility] [address] [place] [address] Dr. Mariama Becerra Globulin (S) [Mass/Vol] 3.2 g/dL Normal [facility] Comment on above: Performed By: #### T SH, T7, LIPID, CMP #### [facility] [address] [place] [address] Dr. Mariama Becerra Glucose [Mass/Vol] 99 mg/dL Normal 74-106 [facility] Comment on above: Performed By: #### T SH, T7, LIPID, CMP #### [facility] [address] [place] [address] Dr. Mariama Becerra Potassium [Moles/Vol] 4.6 mmol/L Normal 3.5-5.1 [facility] Comment on above: Performed By: #### T SH, T7, LIPID, CMP #### [facility] [address] [place] [address] Dr. Mariama Becerra Protein [Mass/Vol] 7.4 g/dL Normal 6.4-8.2 [facility] Comment on above: Performed By: #### T SH, T7, LIPID, CMP #### [facility] [address] [place] [address] Dr. Mariama Becerra Sodium [Moles/Vol] 142 mmol/L Normal 136-145 [facility] Comment on above: Performed By: #### T SH, T7, LIPID, CMP #### [facility] [address] [place] [address] Dr. Mariama Becerra Urea nitrogen [Mass/Vol] 12.0 mg/dL Normal 7.0-18.0 [facility] Comment on above: Performed By: #### T SH, T7, LIPID, CMP #### [facility] [address] [place] [address] Dr. Mariama Becerra Urea nitrogen/Creatinine [Mass ratio] 16.9 mg/mg Normal [facility] Comment on above: Performed By: #### T SH, T7, LIPID, CMP #### [facility] [address] [place] [address] Dr. Mariama Becerra TSHon 04-10-2022 TSH 1.909 uIU/mL Normal 0.358-3.740 [facility] Comment on above: Performed By: #### T SH, T7, LIPID, CMP #### [facility] [address] [place] [address] Dr. Mariama Becerra Vital Signs Date Time Vital Sign Value Performing Clinician Faci lity 11-24-2023 15:35-0400 Blood Pressure Location Jai ARGUELLESL [facility] [place] 11-24-2023 15:35-0400 Diastolic blood pressure 74 mm[Hg] Jai NILL [facility] 11-24-2023 15:35-0400 Heart rate 72 /min Jai NILL [facility] [place] 11-24-2023 15:35-0400 Respiratory rate 16 /min Jai NILL [facility] 11-24-2023 15:35-0400 Systolic blood pressure 124 mm[Hg] Jai NILL [facility] [place] Encounters Encounter Date Encounter Type Care Provider Facility Start: 11-24-2023 End: 11-25-2023 ambulatory Jai RITCHIE Facility:[facility] Start: 11-24-2023 End: 11-24-2023 Patient encounter procedure Jai Damon ARGUELLESL [facility] [place] Start: 10-29-2023 ambulatory Julian Sarmini Facili ty:[facility] Start: 06-24-2023 ambulatory [facility]al [facility] Start: 04-23-2022 End: 04-24-[address] KYARA CASTRO Facility:[facility] Start: 04-16-2022 Encounter for genera l adult medical examination without abnormal findings DR KYARA CASTRO [facility] Start: 04-10-2022 End: 04-11-[address] KYARA CASTRO Facility:[facility] Start: 04-10-2022 End: 04-11-2022 Encounter for general adult medical examination without abnormal findings DR KYARA CASTRO Facility:[facility] Start: 03-19-[address] KYARA CASTRO Facility :[facility] Start: 11-28-2019 End: 11-28-2019 ambulatory Kyara Castro Facility:[facility] Start: 07-29-2018 Patient encounter procedure Margaret Dodge Facility:[id number] Start: 07-21-2018 Patient encounter procedure Margaret Dodge Facility:[id number] Procedures Date Procedure Procedure Detail Performing Clinician Start: 06-23-2013 Colonoscopy Jai CORTÉS LL Abdominal hysterectomy Gabino RITCHIE Biopsy of lung Jai ARGUELLESL Excision of lipoma of back Kuldeep RITCHIE Comment on above: x 2 Lobectomy of lower l obe of right lung Jai RITCHIE Immunizations Immunization Date Immunization Notes Care Provider Fa cilimarshall NEGATED: Highlighted row has not occurred!11-24-2023 influenza virus vaccine, unspecified formulation Jai RITCHIE [facility] [place] Payers Date Payer Category Payer Unknown [id number] 2023 Medicare [id number] 2019 Medicaid [id number] 1957 Self-pay 1957 Unknown [id number] 1955 Unknown [id number] 2.16. [id number] 1957 Unknown [id number] 2.16. [id number] 1957 Unknown [id number] 2.16.84 [id number] 1957 Unknown [id number] 2.16.84 [id number] 1957 Unknown [id number] 2.16.84 [id number] 1957 Unknown [id number] 2.16.8 [id number] Unknown [id number] 2.16.84 [id number] Social History Date Type Detail Facility Tobacco smoking stat [facility] Unknown if ever smoked [facility] Work Phone: Start: 1955 Sex Assigned At Female [facility] Start: 11-24-2023 Tobacco smoking status Never s moked tobacco (finding) [facility] [place] Tobacco smoking status Never [facility] [place] Sex Assigned At Female [facility] Medical Equipment Procedure Code Equipment Code Equipment Origin al Text Equipment Identifier Dates Thoracotomy PROGEL PLEURAL A IR LEAK FDA Start: 09-07-2018 Functional Status Date Assessment Result Facility 11-24-2023 Functional Status N/A [facility] Clinical Note 11-24-2023 Note Date & Type Note Facility 11-24-2023 Note Chief Complaint consultation for colonoscopy HPI Staff 68 year old female presents on consultation from Dr. Castro for screening colonoscopy. Denies abdominal or rectal pain. No rectal bleeding or change in bowel habits. Denies nausea or vomiting. No unexplained weight loss. Last colonoscopy completed 06/2013- normal. No known family history of colon cancer. History of Present Illness 68 yo female with h/o htn, asthma, atrial fibrillation, hypercholesterolemia, referred for colorectal screening; denies change in bms or blood in stools; no abdominal complaints; denies asa or NSAID use, no SBE prophylaxis; abdominal operations significant for APTRICIA, last colonoscopy 2012 wnl; no fmhx of GI malignancy or IBD; no tobacco use. Review of Systems PHQ Score Initial Depression Screen Score: 0 SCORE ROS - Provider Constitutional: no fever, no sweats, no weight loss. Eyes: no glasses, no blurred vision, no visual loss. ENMT: no dentures, no hoarseness, no swallowing difficulties, no hearing loss, no ear infection(s), no nose bleeds. Cardiovascular: normal blood pressure, no chest pain, regular heartbeat, no heart murmur. Respiratory: no shortness of breath, no cough, no asthma, no wheezing. Gastrointestinal: no nausea, no vomiting, no diarrhea, no constipation, no blood in stool, no change in bowel habits, no abdominal pain, no hepatitis. Genitourinary: no kidney stones, no urine infection, no dysuria. Musculoskeletal: no pain, no weakness. Skin: no changing moles, no rash, no skin lumps. Neurologic: no seizures, no epilepsy, no headache. Psychiatric: no emotional or psychiatric problem. Heme/Lymph: no bleeding problems, no anemia, no blood clots, no transfusions. Allergy/Immunologic: no swollen lymph nodes/glands, no IV drug abuse. Other: Additional ROS info: Except as noted in the above Review of Systems and in the History of Present Illness, all other systems have been reviewed and are negative or noncontributory. Physical Exam Vitals & Measurements HR: 72(Peripheral) RR: 16 BP: 124/74 HT: 60 in HT: 152.4 cm WT: 63.9 kg WT: 140.58 lb BMI: 27.51 HEENT: normal conjunctiva, sclera clear, no scleral icterus, EOM intact, PERRLA, oral mucosa moist without lesions. Neck: trachea midline, no mass, symmetric, no thyromegaly or nodules, no adenopathy Respiratory: lungs CTA, respirations non labored. Cardiovascular: regular rate and rhythm, no murmur, no pedal edema or varicosities. Gastrointestinal: soft, non distended, no tenderness, no masses, no palpable hernias, diastasis recti no, no hepatosplenomegaly; normal bs Lymphatic: no cervical adenopathy, no supraclavicular adenopathy, Skin: no rashes, no lesions, no ulcers, no subcutaneous nodules, induration. Psychiatric/Neuro: oriented to time, place, person, judgement normal, affect appropriate for age, insight intact, no focal deficits. Tests: , review of old records completed , Discussed surgical options, risks, and possible complications with patient. Assessment/Plan 1. Screening for malignant neoplasm of colon (Z12.11: Encounter for screening for malignant neoplasm of colon) plan colonoscopy under anesthesia, informed consent obtained. Follow-up No qualifying data available Problem List/Past Medical History Ongoing Adenocarcinoma, lung Asthma Atrial fibrillation BMI 27.0-27.9,adult Essential hypertension Hypercholesterolemia Overweight Screening for malignant neoplasm of colon Historical No qualifying data Procedure/Surgical History Colonoscopy (06/23/2013), Abdominal hysterectomy, Biopsy of lung, Excision of lipoma of back, Lobectomy of lower lobe of right lung. Medications Albuterol (Eqv-ProAir HFA), 2 puff(s), Inhalation, q4hr, PRN Metoprolol tartrate 50 mg Tab, 50 mg= 1 tab(s), Oral, BID Allergies Cipro (Rash) Social History Alcohol - Denies Alcohol Use, 11/24/2023 Substance Abuse - Denies Substance Abuse, 11/24/2023 Tobacco Never (less than 100 in lifetime) Tobacco Use:. Never Smokeless Tobacco Use:., 11/24/2023 Family History Abdominal aortic aneurysm: Mother. Heart disease: Brother. Primary malignant neoplasm of prostate: Father. Immunizations Vaccine Date Status Comments influenza virus vaccine, inactivated - Not Given Patient Refuses [facility] Comment on above: Result Comment: Elec tronically Signed By: ERMA QUINONEZ, Jai Amado\Date and Time Signed: 11/24/23 16:31 EDT Evaluation + Plan note Note Date & Type Note Facility Evaluation + Plan note No data available for this section [facility] [place] Evaluation note Note Date & Type Note Facility Evaluation note No assessment information availa [facility] Work Phone: Hospital Discharge instructions Note Date & Type Note Facility Hospital Discharge instructions No data available for this section [facility] [place] Progress note Note Date & Type Note Facility Progress note No data available for this section [facility] [place] Summary Purpose Family History No Family History Records FoundNo Family History Records FoundNo Family History Records Found No data available for this section No Family History Records Found Advance Directives No Advanced Directives Records FoundNo Advanced Directives Records FoundNo Advanced Directives Records FoundNo Advanced Directives Records Found Additional Source Comments INFORMATION SOURCE (unrecogn ized section and content) DATE CREATED AUTHOR 08/22/2018 [facility] DATE CREATED AUTHOR AUTHOR'S ORGANIZ ATION 04/25/2022 [facility] DATE CREATED AUTHOR AUTHOR'S ORGANIZ ATION 05/15/2023 [facility] DATE CREATED AUTHOR AUTHOR'S ORGANIZ ATION 11/26/2023 [facility] Goals (unrecognized section and content) Goals may be documented in a n alternate section No data available for this section Patient Care team informatio n (unrecognized section and content) Personnel Name: Kyara Castro MD Address: Address: [address] [place] [address] FOR RECORDS PERTAINING TO PATIENTS WHO ARE [...] BE BASED ON THE PRIMARY CLINICAL RECORDS. [facility]. provides no warranty or guarantee of the accuracy or completeness of information in this document.
[2023-12-07 08:45] LABS: Basophils Percent Auto 0.7 % (0.2-2.0); Eosinophils Absolute Auto 0.1 10^3/uL (0.0-0.7); Eosinophils Percent Auto 1.7 % (0.9-7.0); Hemoglobin 13.9 g/dL (12.0-16.0); Immature Granulocytes Abs Auto 0.02 10^3/uL (0.00-0.03); Immature Granulocytes Pct Auto 0.3 % (0.0-0.5); Lymphocytes Absolute Auto 2.5 10^3/uL (1.2-3.8); Lymphocytes Percent Auto 41.1 % (20.5-60.0); Mean Corpuscular HGB Conc 33.1 g/dL (29.9-35.2); Mean Corpuscular Volume 87.7 fL (81.0-99.0); Monocytes Absolute Auto 0.6 10^3/uL (0.3-0.8); Monocytes Percent Auto 10.6 % (1.7-12.0); Neutrophils Absolute Auto 2.8 10^3/uL (1.4-6.5); Neutrophils Percent Auto 45.6 % (43.0-75.0); Platelet Count 225 10^3/uL (150-450); Red Blood Count 4.79 10^6/uL (4.20-5.40); Red Cell Distribution Width 12.7 % (11.0-15.0)
== END 2023-12-07 08:19 | disposition home or self-care (01) ==
LOC: LAB 08:20
PROVIDERS: PCP Family Medicine
DX: H02.839 Dermatochalasis of unspecified eye, unspecified eyelid (principal)
CPT/HCPCS: 36415; 85025

== ENCOUNTER 2024-01-03 13:30 | Outpatient (OUT) | payer MEDICARE, OTHER, SELFPAY ==
--- OUTSIDE RECORDS SUMMARY | 2024-01-04 15:15 | XMS_ITS | CCD ---
Author Organization [facility] Care Team Providers Care Asphalt Blender Name Role Phone Margaret Dodge Unavailable Unavailable [...] Admitting Unavailable Kyara Castro Primary Care Physician Eliel Haines Attending Unavaila Jai Guevara Attending Unavailable Kyara Castro Referring Unavailable Allergies Allergy Classification Reported Allergen(s) Allergy Type Date of Onset Reaction(s) Facility (2 sources) Sertraline Drug Allergy 7 [facility] Repository (3 sources) Ciprofloxacin; Translations: [ciprofloxacin] Drug Allergy 8 Eruption of skin (disorder) [facility] (1 source) Ciprofloxacin; Translations: [Cipro] Drug Allergy [facility] Repository Medications Current Medications Medication [...] for Procedure/Surger yon 11-25-2023 Consent for Procedure/Surgery [id number] Normal [facility] Facesheeton 11-25-2023 Facesheet [id number] Normal [facility] Ambulatory Visit Summaryon 0 11-24-2023 [...] for choosing us for your care. Normal [facility] Physician Referralon 024 Physician Referral [id number] Normal [facility] Reminderson 06-29-2023 Reminders - From: Jennifer Calhoun MA To: Jennifer Calhoun MA; Sent: 06/24/2023 11:34:21 EDT Show up: 06/24/2023 11:34:00 EDT Subject: colon recall Reminder Message [address] Barger 06/23/13 first recall letter sent Patient refused appointment and is going somewhere else. Normal [facility] Patient Letter FTMCon 2022 Patient Letter [facility] June 24, 2023 ADRIEN WILD [address] [place] [id number] : 1955 Dear Adrien, This is a reminder that you are due for an appointment with [facility]. Please contact our office at [phone] to schedule your 10 year colon recall Thank you, [facility] Normal [facility] CT ABDOMEN WO/W CONon 2021 [...] GABRIEL BOND Date: 2022-04-23 09:17 Normal [facility] MAMM SCREEN 3D JAYSON CADon 04-23-2022 MG MAMM SCREEN 3D JAYSON CAD Patient: ADRIEN STATON Exam Date: 04/23/2022 : 1955 Gender:F Ordering : DR KYARA CASTRO . Admission #: [id number] Family : Order #: [id number] CLICK HERE TO VIEW EXAM RADIOLOGY REPORT [...] prostate cancer at age 57. LOCATION: [facility] BREAST COMPOSITION: Heterogeneously dense,which may obscure small [...] MD on 04/23/2022 at 10:43 Normal [facility] CBC AUTO DIFFon 04-10-2022 BASO # 0.0 103/ul Normal 0.0-0.1 [facility] Comment on above: Performed By: #### C BC #### [facility] [address] [place] [address] Dr. Mariama Becerra Basophils/100 WBC (Bld) 0.6 % Normal 0.2-2.0 [facility] Comment on above: Performed By: #### C BC #### [facility] [address] [place] [address] Dr. Mariama Becerra EO # 0.1 103/ul Normal 0.0-0.7 [facility] Comment on above: Performed By: #### C BC #### [facility] [address] [place] [address] Dr. Mariama Becerra Eosinophils/100 WBC (Bld) 1.5 % Normal 0.9-7.0 [facility] Comment on above: Performed By: #### C BC #### [facility] [address] [place] [address] Dr. Mariama Becerra Erythrocyte distribution width (RBC) [Ratio] 12.7 % Normal 11.0-15.0 [facility] Comment on above: Performed By: #### C BC #### [facility] [address] [place] [address] Dr. Mariama Becerra Hematocrit (Bld) [Volume fraction] 40.3 % Normal 36.0-48.0 [facility] Comment on above: Performed By: #### C BC #### [facility] [address] [place] [address] Dr. Mariama Becerra Hemoglobin (Bld) [Mass/Vol] 13.6 g/dL Normal 12.0-16.0 [facility] Comment on above: Performed By: #### C BC #### [facility] [address] [place] [address] Dr. Mariama Becerra IG # 0.02 10e3/ul Normal 0.00-0.03 [facility] Comment on above: Performed By: #### C BC #### [facility] [address] [place] [address] Dr. Mariama Becerra IG % 0.4 % Normal 0.0-0.5 [facility] Comment on above: Performed By: #### C BC #### [facility] [address] [place] [address] Dr. Mariama Becerra LYMPH # 1.9 103/ul Normal 1.2-3.8 [facility] Comment on above: Performed By: #### C BC #### [facility] [address] [place] [address] Dr. Mariama Becerra Lymphocytes/100 WBC (Bld) 34.9 % Normal 20.5-60.0 [facility] Comment on above: Performed By: #### C BC #### [facility] [address] [place] [address] Dr. Mariama Becerra MANUAL DIFF REQ NO Normal [facility] Comment on above: Performed By: #### C BC #### [facility] [address] [place] [address] Dr. Mariama Becerra MCH (RBC) [Entitic mass] 29.4 pg Normal 26.7-34.0 [facility] Comment on above: Performed By: #### C BC #### [facility] [address] [place] [address] Dr. Mariama Becerra MCHC (RBC) [Mass/Vol] 33.7 g/dL Normal 29.9-35.2 [facility] Comment on above: Performed By: #### C BC #### [facility] [address] [place] [address] Dr. Mariama Becerra MCV (RBC) [Entitic vol] 87.0 fL Normal 81.0-99.0 [facility] Comment on above: Performed By: #### C BC #### [facility] [address] [place] [address] Dr. Mariama Becerra MONO # 0.6 103/ul Normal 0.3-0.8 [facility] Comment on above: Performed By: #### C BC #### [facility] [address] [place] [address] Dr. Mariama Becerra Monocytes/100 WBC (Bld) 11.2 % Normal 1.7-12.0 [facility] Comment on above: Performed By: #### C BC #### [facility] [address] [place] [address] Dr. Mariama Becerra NEUT # 2.8 103/ul Normal 1.4-6.5 [facility] Comment on above: Performed By: #### C BC #### [facility] [address] [place] [address] Dr. Mariama Becerra Neutrophils/100 WBC (Bld) 51.4 % Normal 43.0-75.0 [facility] Comment on above: Performed By: #### C BC #### [facility] [address] [place] [address] Dr. Mariama Becerra Platelet mean volume (Bld) [Entitic vol] 9.9 fL Normal 9.5-13.5 [facility] Comment on above: Performed By: #### C BC #### [facility] [address] [place] [address] Dr. Mariama Becerra PLT 217 103/ul Normal 150-450 [facility] Comment on above: Performed By: #### C BC #### [facility] [address] [place] [address] Dr. Mariama Becerra RBC 4.63 106/ul Normal 4.20-5.40 [facility] Comment on above: Performed By: #### C BC #### [facility] [address] [place] [address] Dr. Mariama Becerra WBC 5.4 103/ul Normal 4.0-11.0 [facility] Comment on above: Performed By: #### C BC #### [facility] [address] [place] [address] Dr. Mariama Becerra FREE THYROXINE INDEX T7on FTI 2.81 Normal 1.30-4.50 [facility] Comment on above: Performed By: #### T SH, T7, LIPID, CMP #### [facility] [address] [place] [address] Dr. Mariama Becerra T3U 33.0 % Normal 30.0-39.0 [facility] Comment on above: Performed By: #### T SH, T7, LIPID, CMP #### [facility] [address] [address] [address] Mariama Becerra T4 [Mass/Vol] 8.50 ug/dL Normal 4.80-13.90 [facility] Comment on above: Performed By: #### T SH, T7, LIPID, CMP #### [facility] [address] [address] [address] Mariama Becerra GLYCOHEMOGLOBIN A1Con 2021 ADA RECOMMENDATION SEE BELOW Normal [facility] Comment on above: Result Comment: ADA RECOMMENDED LIMIT 4.0 - 6.0 ADA THERAPEUTIC TARGET < 7.0 ACTION SUGGESTED > 7.0 Performed By: #### A 1C #### [facility] [address] [address] [address] Mariama Becerra Glucose [Mass/Vol] 117 mg/dL Normal [facility] Comment on above: Performed By: #### A 1C #### [facility] [address] [address] [address] Mariama Becerra HbA1c (Bld) [Mass fraction] 5.7 % Normal 4.5-6.2 [facility] Comment on above: Performed By: #### A 1C #### [facility] [address] [place] [address] Dr. Mariama Becerra IRONon 04-10-2022 Iron [Mass/Vol] 88.0 ug/dL Normal 50.0-170.0 [facility] Comment on above: Performed By: #### I ANGEL #### [facility] [address] [address] [address] Mariama Becerra LIPID PROFILEon 04-10-2022 CHOL-HDL RATIO NORM SEE BELOW Normal [facility] Comment on above: Result Comment: 3.3 - 4.4 LOW RISK 4.4 - 7.1 AVERAGE RISK 7.1 - 11.0 MODERATE RISK >11.0 HIGH RISK Performed By: #### T SH, T7, LIPID, CMP #### [facility] [address] [address] [address] Mariama Becerra Cholesterol [Mass/Vol] 136 mg/dL Normal <=200 [facility] Comment on above: Performed By: #### T SH, T7, LIPID, CMP #### [facility] [address] [address] [address] Mariama Becerra Cholesterol in HDL [Mass/Vol] 63 mg/dL Critically high 40-60 [facility] Comment on above: Performed By: #### T SH, T7, LIPID, CMP #### [facility] [address] [address] [address] Mariama Becerra Cholesterol in LDL [Mass/Vol] 58.8 mg/dL Normal [facility] Comment on above: Performed By: #### T SH, T7, LIPID, CMP #### [facility] [address] [address] [address] Mariama Becerra Cholesterol.total/Cho lesterol in HDL [Mass ratio] 2.2 {ratio} Normal [facility] Comment on above: Performed By: #### T SH, T7, LIPID, CMP #### [facility] [address] [address] [address] Mariama Becerra HDL NORMAL > or = 60 mg/dl - LO W CARDIOVASCULAR RISK <40 mg/dl - HIGH CARDIOVASCULAR RISK Normal [facility] Comment on above: Performed By: #### T SH, T7, LIPID, CMP #### [facility] [address] [address] [address] Mariama Becerra LDL CALC NORMAL SEE BELOW Normal [facility] Comment on above: Result Comment: <100 mg/dl OPTIMAL 100 - 129 mg/dl NEAR OR ABOVE OPTIMAL 130 - 159 mg/dl BORDERLINE HIGH 160 - 189 mg/dl HIGH >190 mg/dl VERY HIGH Performed By: #### T SH, T7, LIPID, CMP #### [facility] [address] [address] [address] Mariama Becerra Triglyceride [Mass/Vol] 71 mg/dL Normal <=150 [facility] Comment on above: Performed By: #### T SH, T7, LIPID, CMP #### [facility] [address] [address] [address] Mariama Becerra VLDL CALC 14.2 mg/dL Normal [facility] Comment on above: Performed By: #### T SH, T7, LIPID, CMP #### [facility] [address] [address] [address] Mariama Becerra PROF 14(COMP METB)on 022 Albumin [Mass/Vol] 4.2 g/dL Normal 3.4-5.0 [facility] Comment on above: Performed By: #### T SH, T7, LIPID, CMP #### [facility] [address] [place] [address] Dr. Mariama Becerra Albumin/Globulin [Mass ratio] 1.3 {ratio} Normal [facility] Comment on above: Performed By: #### T SH, T7, LIPID, CMP #### [facility] [address] [place] [address] Dr. Mariama Becerra ALP [Catalytic activity/Vol] 65 U/L Normal 46-116 [facility] Comment on above: Performed By: #### T SH, T7, LIPID, CMP #### [facility] [address] [place] [address] Dr. Mariama Becerra ALT [Catalytic activity/Vol] 20 U/L Normal 14-59 [facility] Comment on above: Performed By: #### T SH, T7, LIPID, CMP #### [facility] [address] [place] [address] Dr. Mariama Becerra Anion gap [Moles/Vol] 8.1 mmol/L Normal [facility] Comment on above: Performed By: #### T SH, T7, LIPID, CMP #### [facility] [address] [place] [address] Dr. Mariama Becerra AST [Catalytic activity/Vol] 15 U/L Normal 15-37 [facility] Comment on above: Performed By: #### T SH, T7, LIPID, CMP #### [facility] [address] [place] [address] Dr. Mariama Becerra Bilirubin [Mass/Vol] 0.7 mg/dL Normal 0.2-1.0 [facility] Comment on above: Performed By: #### T SH, T7, LIPID, CMP #### [facility] [address] [address] [address] Mariama Becerra Calcium [Mass/Vol] 9.2 mg/dL Normal 8.5-10.1 [facility] Comment on above: Performed By: #### T SH, T7, LIPID, CMP #### [facility] [address] [place] [address] Dr. Mariama Becerra Chloride [Moles/Vol] 106 mmol/L Normal 98-107 [facility] Comment on above: Performed By: #### T SH, T7, LIPID, CMP #### [facility] [address] [place] [address] Dr. Mariama Becerra CO2 [Moles/Vol] 32.5 mmol/L Critically high 21.0-32.0 [facility] Comment on above: Performed By: #### T SH, T7, LIPID, CMP #### [facility] [address] [place] [address] Dr. Mariama Becerra Creatinine [Mass/Vol] 0.71 mg/dL Normal 0.55-1.02 [facility] Comment on above: Performed By: #### T SH, T7, LIPID, CMP #### [facility] [address] [place] [address] Dr. Mariama Becerra EGFR-AF LUXEMBOURGER >60 Normal >=60 [facility] Comment on above: Performed By: #### T SH, T7, LIPID, CMP #### [facility] [address] [place] [address] Dr. Mariama Becerra EGFR-NON AF LUXEMBOURGER >60 Normal >=60 [facility] Comment on above: Performed By: #### T SH, T7, LIPID, CMP #### [facility] [address] [place] [address] Dr. Mariama Becerra Globulin (S) [Mass/Vol] 3.2 g/dL Normal [facility] Comment on above: Performed By: #### T SH, T7, LIPID, CMP #### [facility] [address] [place] [address] Dr. Mariama Becerra Glucose [Mass/Vol] 99 mg/dL Normal 74-106 [facility] Comment on above: Performed By: #### T SH, T7, LIPID, CMP #### [facility] [address] [place] [address] Dr. Mariama Becerra Potassium [Moles/Vol] 4.6 mmol/L Normal 3.5-5.1 [facility] Comment on above: Performed By: #### T SH, T7, LIPID, CMP #### [facility] [address] [place] [address] Dr. Mariama Becerra Protein [Mass/Vol] 7.4 g/dL Normal 6.4-8.2 [facility] Comment on above: Performed By: #### T SH, T7, LIPID, CMP #### [facility] [address] [place] [address] Dr. Mariama Becerra Sodium [Moles/Vol] 142 mmol/L Normal 136-145 [facility] Comment on above: Performed By: #### T SH, T7, LIPID, CMP #### [facility] [address] [place] [address] Dr. Mariama Becerra Urea nitrogen [Mass/Vol] 12.0 mg/dL Normal 7.0-18.0 [facility] Comment on above: Performed By: #### T SH, T7, LIPID, CMP #### [facility] [address] [place] [address] Dr. Mariama Becerra Urea nitrogen/Creatinine [Mass ratio] 16.9 mg/mg Normal [facility] Comment on above: Performed By: #### T SH, T7, LIPID, CMP #### [facility] [address] [place] [address] Dr. Mariama Becerra TSHon 04-10-2022 TSH 1.909 uIU/mL Normal 0.358-3.740 [facility] Comment on above: Performed By: #### T SH, T7, LIPID, CMP #### [facility] [address] [place] [address] Dr. Mariama Becerra Vital Signs Date Time Vital Sign Value Performing Clinician Faci lity 11-24-2023 15:35-0400 Blood Pressure Location Jai ARGUELLESL [facility] 11-24-2023 15:35-0400 Diastolic blood pressure 74 mm[Hg] Jai NILL [facility] 11-24-2023 15:35-0400 Heart rate 72 /min Jai NILL [facility] 11-24-2023 15:35-0400 Respiratory rate 16 /min Jai NILL [facility] 11-24-2023 15:35-0400 Systolic blood pressure 124 mm[Hg] Jai NILL [facility] Encounters Encounter Date Encounter Type Care Provider Facility Start: 11-24-2023 End: 11-25-2023 ambulatory Jai RITCHIE Facility:[facility] Start: 11-24-2023 End: 11-24-2023 Patient encounter procedure Jai Damon ARGUELLESL [facility] Start: 10-29-2023 ambulatory Julian Sarmini Facili ty:[facility] Start: 06-24-2023 ambulatory [facility] Talal [facility] Start: 04-23-2022 End: 04-24-[address] KYARA CASTRO Facility:[facility] Start: 04-16-2022 Encounter for genera l adult medical examination without abnormal findings DR KYARA CASTRO [facility] Start: 04-10-2022 End: 04-11-[address] KYARA CASTRO Facility:[facility] Start: 04-10-2022 End: 04-11-2022 Encounter for general adult medical examination without abnormal findings DR KYARA CASTRO Facility:[facility] Start: 03-19-[address] KYARA CASTRO Facility :[facility] Start: 11-28-2019 End: 11-28-2019 ambulatory Kyara Castro Facility:[facility] Start: 07-29-2018 Patient encounter procedure Margaret [...] vaccine, unspecified formulation Jai RITCHIE [facility] Payers Date Payer Category Payer Unknown [id number] 2023 Medicare [id number] 2019 Medicaid [id number] 1957 Self-pay 1957 Unknown [id number] 1955 Unknown [id number] 2.16. [id number] 1955 Unknown [id number] 2.16. [id number] 1955 Unknown [id number] 2.16.84 [id number] 1955 Unknown [id number] 2.16.84 [id number] 1955 Unknown [id number] 2.16.84 [id number] 1955 Unknown [id number] 2.16.8 [id number] Unknown [id number] 2.16.84 [id number] Social History Date Type Detail Facility Tobacco smoking stat [facility] Unknown if ever smoked [facility] Work Phone: Start: 1955 Sex Assigned At Female [facility] Start: 11-24-2023 Tobacco smoking status Never s moked tobacco (finding) [facility] Tobacco smoking status Never [facility] Sex Assigned At Female [facility] Medical Equipment Procedure Code Equipment Code [...] no SBE prophylaxis; abdominal operations significant for PATRICIA, last colonoscopy 2012 wnl; no fmhx of [...] vaccine, inactivated - Not Given Patient Refuses [facility] Comment on above: Result Comment: Elec tronically Signed By: ERMA QUINONEZ, Jai Amado\Date and Time Signed: 11/24/23 16:31 EDT Evaluation + Plan note Note Date & Type Note Facility Evaluation + Plan note No data available for this section [facility] Evaluation note Note Date & Type Note Facility Evaluation note No assessment information availa [facility] Work Phone: Hospital Discharge instructions Note Date & Type Note Facility Hospital Discharge instructions No data available for this section [facility] Progress note Note Date & Type Note Facility Progress note No data available for this section [facility] Summary Purpose Family History No Family History Records FoundNo Family History Records FoundNo Family History Records Found No data available for this section No Family History Records Found Advance Directives No Advanced Directives Records FoundNo Advanced Directives Records FoundNo Advanced Directives Records FoundNo Advanced Directives Records Found Additional Source Comments INFORMATION SOURCE (unrecogn ized section and content) DATE CREATED AUTHOR 08/22/2018 [facility] DATE CREATED AUTHOR AUTHOR'S ORGANIZ ATION 04/25/2022 [facility] DATE CREATED AUTHOR AUTHOR'S ORGANIZ ATION 05/15/2023 [facility] DATE CREATED AUTHOR AUTHOR'S ORGANIZ ATION 11/26/2023 [facility] Goals (unrecognized section and content) Goals may be documented in a n alternate section No data available for this section Patient Care team informatio n (unrecognized section and content) Personnel Name: Kyara Castro MD Address: Address: [address] [place] [address] FOR RECORDS PERTAINING TO PATIENTS WHO ARE [...] BE BASED ON THE PRIMARY CLINICAL RECORDS. [facility] [employer] [facility]. provides no warranty or guarantee of the accuracy or completeness of information in this document.
== END 2024-01-03 13:31 | disposition home or self-care (01) ==
LOC: PST 01-04 14:53
PROVIDERS: PCP Family Medicine; Visit Provider Surgery
DX: Z01.818 Encounter for other preprocedural examination (principal); Z12.11 Encounter for screening for malignant neoplasm of colon

== ENCOUNTER 2024-01-12 07:13 | Day surgery (SDC) | payer MEDICARE, OTHER, SELFPAY ==
--- NOTE | 2024-01-12 | OP_ITS ---
OPERATION DATE: 01/12/2024 PREOPERATIVE DIAGNOSIS: Colorectal screening. POSTOPERATIVE DIAGNOSIS: Normal colonoscopy to cecum. PROCEDURE: Colonoscopy to cecum. SURGEON: Jai Carrion M.D. ANESTHESIA: Monitored anesthesia care. ESTIMATED BLOOD LOSS: Zero. INDICATIONS AND CONSENT: Patient is a 68-year-old female presents for colorectal screening. Indications, risks, benefits, alternatives of proceeding with colonoscopy were explained extensively to the patient, including the risks of bleeding, colon perforation or anesthetic complications. All of her questions were answered. Informed consent was obtained. PROCEDURE: Patient brought to the operating room, placed in the left lateral decubitus position. Monitored anesthesia care was provided. Rectal exam was performed which showed no masses or blood. The scope was inserted into the anal canal. Under direct visualization was advanced. With the aid of abdominal compression, it was advanced to the cecum where cecal markings were clearly identified. There was noted to be a good prep. Upon withdrawal of the scope, mucosal surfaces were carefully examined. There were no mass lesions or polyps. No inflammatory changes or ulcerations. No significant diverticulosis. There was some redundancy of the colon. The scope was retroflexed in the anal canal. There was no significant hemorrhoidal disease. The scope was then withdrawn. Patient tolerated procedure well, was sent to recovery room in good condition. Follow up screening colonoscopy should be in 10 years. CC: Nick Castro M.D. KISHA
--- OUTSIDE RECORDS SUMMARY | 2024-01-12 07:16 | XMS_ITS | CCD ---
Author Organization [facility] Care Team Providers Care Director Security Management Name Role Phone Margaret Dodge Unavailable Unavailable [...] (2 sources) Sertraline Drug Allergy 7 The Repository (3 sources) Ciprofloxacin; Translations: [ciprofloxacin] Drug Allergy 8 Eruption of skin (disorder) [facility] (1 source) Ciprofloxacin; Translations: [Cipro] Drug Allergy [facility] Repository Medications Current Medications Medication [...] for Procedure/Surger yon 11-25-2023 Consent for Procedure/Surgery [id number] Normal [facility] Facesheeton 11-25-2023 Facesheet [id number] .[id number] Normal [facility] Ambulatory Visit Summaryon 0 11-24-2023 [...] us for your care. Normal [facility] Physician Referralon 024 Physician Referral [id number] Normal [facility] Reminderson 06-29-2023 Reminders - From: Jennifer Calhoun MA To: Jennifer Calhoun MA; Sent: 06/24/2023 11:34:21 EDT Show up: 06/24/2023 11:34:00 EDT Subject: colon recall Reminder Message [address] Barger 06/23/13 first recall letter sent Patient refused appointment and is going somewhere else. Normal [facility] Patient Letter FTMCon 2022 Patient Letter [facility] June 24, 2023 ADRIEN WILD [address] [place] [id number] : 1955 Dear Adrien, This is a reminder that you are due for an appointment with [facility]. Please contact our office at [phone] to schedule your 10 year colon recall Thank you, [facility] Normal [facility] CT ABDOMEN WO/W CONon 2021 [...] GABRIEL BOND Date: 2022-04-23 09:17 Normal [facility] MAMM SCREEN 3D JAYSON CADon 04-23-2022 MG MAMM SCREEN 3D JAYSON CAD Patient: ADRIEN STATON Exam Date: 04/23/2022 : 1955 Gender:F Ordering : DR KYARA CASTRO . Admission #: [id number] Family : Order #: [id number] CLICK HERE TO VIEW EXAM RADIOLOGY REPORT [...] prostate cancer at age 57. LOCATION: The BREAST COMPOSITION: Heterogeneously dense,which may obscure small [...] MD on 04/23/2022 at 10:43 Normal The CBC AUTO DIFFon 04-10-2022 BASO # 0.0 103/ul Normal 0.0-0.1 [facility] Comment on above: Performed By: #### C BC #### Laboratory [address] [place] [address] Dr. Mariama Becerra Basophils/100 WBC (Bld) 0.6 % Normal 0.2-2.0 The Comment on above: Performed By: #### C BC #### Laboratory [address] [place] [address] Dr. Mariama Becerra EO # 0.1 103/ul Normal 0.0-0.7 The Comment on above: Performed By: #### C BC #### Laboratory [address] [place] [address] Dr. Mariama Becerra Eosinophils/100 WBC (Bld) 1.5 % Normal 0.9-7.0 [facility] Comment on above: Performed By: #### C BC #### Laboratory [address] [place] [address] Dr. Mariama Becerar Erythrocyte distribution width (RBC) [Ratio] 12.7 % Normal 11.0-15.0 [facility] Comment on above: Performed By: #### C BC #### Laboratory [address] [place] [address] Dr. Mariama Becerra Hematocrit (Bld) [Volume fraction] 40.3 % Normal 36.0-48.0 [facility] Comment on above: Performed By: #### C BC #### Laboratory [address] [place] [address] Dr. Mariama Becerra Hemoglobin (Bld) [Mass/Vol] 13.6 g/dL Normal 12.0-16.0 The Comment on above: Performed By: #### C BC #### Laboratory [address] [place] [address] Dr. Mariama Becerra IG # 0.02 10e3/ul Normal 0.00-0.03 The Comment on above: Performed By: #### C BC #### Laboratory [address] [place] [address] Dr. Mariama Becerra IG % 0.4 % Normal 0.0-0.5 The Comment on above: Performed By: #### C BC #### Laboratory [address] [place] [address] Dr. Mariama Becerra LYMPH # 1.9 103/ul Normal 1.2-3.8 The Comment on above: Performed By: #### C BC #### Laboratory [address] [place] [address] Dr. Mariama Becerra Lymphocytes/100 WBC (Bld) 34.9 % Normal 20.5-60.0 The Comment on above: Performed By: #### C BC #### Laboratory [address] [place] [address] Dr. Mariama Becerra MANUAL DIFF REQ NO Normal [facility] Comment on above: Performed By: #### C BC #### Laboratory [address] [place] [address] Dr. Mariama Becerra MCH (RBC) [Entitic mass] 29.4 pg Normal 26.7-34.0 The Comment on above: Performed By: #### C BC #### Laboratory [address] [place] [address] Dr. Mariama Becerra MCHC (RBC) [Mass/Vol] 33.7 g/dL Normal 29.9-35.2 The Comment on above: Performed By: #### C BC #### Laboratory [address] [place] [address] Dr. Mariama Becerra MCV (RBC) [Entitic vol] 87.0 fL Normal 81.0-99.0 The Comment on above: Performed By: #### C BC #### Laboratory [address] [place] [address] Dr. Mariama Becerra MONO # 0.6 103/ul Normal 0.3-0.8 The Comment on above: Performed By: #### C BC #### Laboratory [address] [place] [address] Dr. Mariama Becerra Monocytes/100 WBC (Bld) 11.2 % Normal 1.7-12.0 [facility] Comment on above: Performed By: #### C BC #### Laboratory [address] [place] [address] Dr. Mariama Becerra NEUT # 2.8 103/ul Normal 1.4-6.5 [facility] Comment on above: Performed By: #### C BC #### Laboratory [address] [place] [address] Dr. Mariama Becerra Neutrophils/100 WBC (Bld) 51.4 % Normal 43.0-75.0 [facility] Comment on above: Performed By: #### C BC #### Laboratory [address] [place] [address] Dr. Mariama Becerra Platelet mean volume (Bld) [Entitic vol] 9.9 fL Normal 9.5-13.5 [facility] Comment on above: Performed By: #### C BC #### Laboratory [address] [place] [address] Dr. Mariama Becerra PLT 217 103/ul Normal 150-450 [facility] Comment on above: Performed By: #### C BC #### Laboratory [address] [place] [address] Dr. Mariama Becerra RBC 4.63 106/ul Normal 4.20-5.40 The Comment on above: Performed By: #### C BC #### Laboratory [address] [place] [address] Dr. Mariama Becerra WBC 5.4 103/ul Normal 4.0-11.0 The Comment on above: Performed By: #### C BC #### Laboratory [address] [place] [address] Dr. Mariama Becerra FREE THYROXINE INDEX T7on FTI 2.81 Normal 1.30-4.50 [facility] Comment on above: Performed By: #### T SH, T7, LIPID, CMP #### Laboratory [address] [place] [address] Dr. Mariama Becerra T3U 33.0 % Normal 30.0-39.0 [facility] Comment on above: Performed By: #### T SH, T7, LIPID, CMP #### Laboratory [address] [address] [address] Mariama Becerra T4 [Mass/Vol] 8.50 ug/dL Normal 4.80-13.90 [facility] Comment on above: Performed By: #### T SH, T7, LIPID, CMP #### Laboratory [address] [address] [address] Mariama Becerra GLYCOHEMOGLOBIN A1Con 2021 ADA RECOMMENDATION SEE BELOW Normal [facility] Comment on above: Result Comment: ADA RECOMMENDED LIMIT 4.0 - 6.0 ADA THERAPEUTIC TARGET < 7.0 ACTION SUGGESTED > 7.0 Performed By: #### A 1C #### Laboratory [address] [address] [address] Mariama Becerra Glucose [Mass/Vol] 117 mg/dL Normal [facility] Comment on above: Performed By: #### A 1C #### Laboratory [address] [address] [address] Mariama Becerra HbA1c (Bld) [Mass fraction] 5.7 % Normal 4.5-6.2 [facility] Comment on above: Performed By: #### A 1C #### Laboratory [address] [place] [address] Dr. Mariama Becerra IRONon 04-10-2022 Iron [Mass/Vol] 88.0 ug/dL Normal 50.0-170.0 [facility] Comment on above: Performed By: #### I ANGEL #### Laboratory [address] [address] [address] Mariama Becerra LIPID PROFILEon 04-10-2022 CHOL-HDL RATIO NORM SEE BELOW Normal [facility] Comment on above: Result Comment: 3.3 - 4.4 LOW RISK 4.4 - 7.1 AVERAGE RISK 7.1 - 11.0 MODERATE RISK >11.0 HIGH RISK Performed By: #### T SH, T7, LIPID, CMP #### Laboratory [address] [address] [address] Mariama Becerra Cholesterol [Mass/Vol] 136 mg/dL Normal <=200 [facility] Comment on above: Performed By: #### T SH, T7, LIPID, CMP #### Laboratory [address] [address] [address] Mariama Becerra Cholesterol in HDL [Mass/Vol] 63 mg/dL Critically high 40-60 The Comment on above: Performed By: #### T SH, T7, LIPID, CMP #### Laboratory [address] [address] [address] Mariama Becerra Cholesterol in LDL [Mass/Vol] 58.8 mg/dL Normal The Comment on above: Performed By: #### T SH, T7, LIPID, CMP #### Laboratory [address] [address] [address] Mariama Becerra Cholesterol.total/Cho lesterol in HDL [Mass ratio] 2.2 {ratio} Normal [facility] Comment on above: Performed By: #### T SH, T7, LIPID, CMP #### Laboratory [address] [address] [address] Mariama Becerra HDL NORMAL > or = 60 mg/dl - LO W CARDIOVASCULAR RISK <40 mg/dl - HIGH CARDIOVASCULAR RISK Normal The Comment on above: Performed By: #### T SH, T7, LIPID, CMP #### Laboratory [address] [address] [address] Mariama Becerra LDL CALC NORMAL SEE BELOW Normal [facility] Comment on above: Result Comment: <100 mg/dl OPTIMAL 100 - 129 mg/dl NEAR OR ABOVE OPTIMAL 130 - 159 mg/dl BORDERLINE HIGH 160 - 189 mg/dl HIGH >190 mg/dl VERY HIGH Performed By: #### T SH, T7, LIPID, CMP #### Laboratory [address] [address] [address] Mariama Becerra Triglyceride [Mass/Vol] 71 mg/dL Normal <=150 The Comment on above: Performed By: #### T SH, T7, LIPID, CMP #### Laboratory [address] [address] [address] Mariama Becerra VLDL CALC 14.2 mg/dL Normal [facility] Comment on above: Performed By: #### T SH, T7, LIPID, CMP #### Laboratory [address] [address] [address] Mariama Becerra PROF 14(COMP METB)on 022 Albumin [Mass/Vol] 4.2 g/dL Normal 3.4-5.0 [facility] Comment on above: Performed By: #### T SH, T7, LIPID, CMP #### Laboratory [address] [place] [address] Dr. Mariama Becerra Albumin/Globulin [Mass ratio] 1.3 {ratio} Normal [facility] Comment on above: Performed By: #### T SH, T7, LIPID, CMP #### Laboratory [address] [place] [address] Dr. Mariama Becerra ALP [Catalytic activity/Vol] 65 U/L Normal 46-116 [facility] Comment on above: Performed By: #### T SH, T7, LIPID, CMP #### Laboratory [address] [place] [address] Dr. Mariama Becerra ALT [Catalytic activity/Vol] 20 U/L Normal 14-59 [facility] Comment on above: Performed By: #### T SH, T7, LIPID, CMP #### Laboratory [address] [place] [address] Dr. Mariama Becerra Anion gap [Moles/Vol] 8.1 mmol/L Normal [facility] Comment on above: Performed By: #### T SH, T7, LIPID, CMP #### Laboratory [address] [place] [address] Dr. Mariama Becerra AST [Catalytic activity/Vol] 15 U/L Normal 15-37 [facility] Comment on above: Performed By: #### T SH, T7, LIPID, CMP #### Laboratory [address] [place] [address] Dr. Mariama Becerra Bilirubin [Mass/Vol] 0.7 mg/dL Normal 0.2-1.0 [facility] Comment on above: Performed By: #### T SH, T7, LIPID, CMP #### Laboratory [address] [address] [address] Mariama Becerra Calcium [Mass/Vol] 9.2 mg/dL Normal 8.5-10.1 [facility] Comment on above: Performed By: #### T SH, T7, LIPID, CMP #### Laboratory [address] [place] [address] Dr. Mariama Becerra Chloride [Moles/Vol] 106 mmol/L Normal 98-107 [facility] Comment on above: Performed By: #### T SH, T7, LIPID, CMP #### Laboratory [address] [place] [address] Dr. Mariama Becerra CO2 [Moles/Vol] 32.5 mmol/L Critically high 21.0-32.0 [facility] Comment on above: Performed By: #### T SH, T7, LIPID, CMP #### Laboratory [address] [place] [address] Dr. Mariama Becerra Creatinine [Mass/Vol] 0.71 mg/dL Normal 0.55-1.02 [facility] Comment on above: Performed By: #### T SH, T7, LIPID, CMP #### Laboratory [address] [place] [address] Dr. Mariama Becerra EGFR-AF CAMEROONIAN >60 Normal >=60 [facility] Comment on above: Performed By: #### T SH, T7, LIPID, CMP #### Laboratory [address] [place] [address] Dr. Mariama Beecrra EGFR-NON AF CAMEROONIAN >60 Normal >=60 [facility] Comment on above: Performed By: #### T SH, T7, LIPID, CMP #### Laboratory [address] [place] [address] Dr. Mariama Becerra Globulin (S) [Mass/Vol] 3.2 g/dL Normal [facility] Comment on above: Performed By: #### T SH, T7, LIPID, CMP #### Laboratory [address] [place] [address] Dr. Mariama Becerra Glucose [Mass/Vol] 99 mg/dL Normal 74-[address] [facility] Comment on above: Performed By: #### T SH, T7, LIPID, CMP #### Laboratory [address] [place] [address] Dr. Mariama Becerra Potassium [Moles/Vol] 4.6 mmol/L Normal 3.5-5.1 The Comment on above: Performed By: #### T SH, T7, LIPID, CMP #### Laboratory [address] [place] [address] Dr. Mariama Becerra Protein [Mass/Vol] 7.4 g/dL Normal 6.4-8.[address] [facility] Comment on above: Performed By: #### T SH, T7, LIPID, CMP #### Laboratory [address] [place] [address] Dr. Mariama Becerra Sodium [Moles/Vol] 142 mmol/L Normal 136-[address] [facility] Comment on above: Performed By: #### T SH, T7, LIPID, CMP #### Laboratory [address] [place] [address] Dr. Mariama Becerra Urea nitrogen [Mass/Vol] 12.0 mg/dL Normal 7.0-18.0 The Comment on above: Performed By: #### T SH, T7, LIPID, CMP #### Laboratory [address] [place] [address] Dr. Mariama Becerra Urea nitrogen/Creatinine [Mass ratio] 16.9 mg/mg Normal The Comment on above: Performed By: #### T SH, T7, LIPID, CMP #### Laboratory [address] [place] [address] Dr. Mariama Becerra TSHon 04-10-2022 TSH 1.909 uIU/mL Normal 0.358-3.740 [facility] Comment on above: Performed By: #### T SH, T7, LIPID, CMP #### Laboratory [address] [place] [address] Dr. Mariama Becerra Vital Signs Date Time Vital Sign Value Performing Clinician Faci lity 11-24-2023 15:35-0400 Blood Pressure Location Jai ARGUELLESL [facility] 11-24-2023 15:35-0400 Diastolic blood pressure 74 mm[Hg] Jai NILL [facility] 11-24-2023 15:35-0400 Heart rate 72 /min Jai NILL [facility] 11-24-2023 15:35-0400 Respiratory rate 16 /min Jai NILL [facility] [place] 11-24-2023 15:35-0400 Systolic blood pressure 124 mm[Hg] Jai NILL [facility] [place] Encounters Encounter Date Encounter Type Care Provider Facility Start: 11-24-2023 End: 11-25-2023 ambulatory Jai RITCHIE Facility:[facility] Start: 11-24-2023 End: 11-24-2023 Patient encounter procedure Jai Damon ARGUELLESL [facility] Start: 10-29-2023 ambulatory Julian Sarmini Facili ty:[facility] Start: 06-24-2023 ambulatory Julian Talal Sarmini [facility] Start: 04-23-2022 End: 04-24-[address] KYARA CASTRO Facility:[facility] Start: 04-16-2022 Encounter for genera l adult medical examination without abnormal findings DR KYARA CASTRO [facility] Start: 04-10-2022 End: 04-11-[address] KYARA CASTRO Facility:[facility] Start: 04-10-2022 End: 04-11-2022 Encounter for general adult medical examination without abnormal findings DR KYARA CASTRO Facility:[facility] Start: 03-19-[address] KYARA CASTRO Facility :[facility] Start: 11-28-2019 End: 11-28-2019 ambulatory Kyara Castro Facility:[facility] Start: 07-29-2018 Patient encounter procedure Margaret [...] vaccine, unspecified formulation Jai RITCHIE [facility] [place] Payers Date Payer Category Payer Unknown [id number] 2023 Medicare [id number] 2019 Medicaid [id number] 1957 Self-pay 1957 Unknown [id number] 1955 Unknown [id number] 2.16. [id number] 1955 Unknown [id number] 2.16. [id number] 1955 Unknown [id number] 2.16.84 [id number] 1955 Unknown [id number] 2.16.84 [id number] 1955 Unknown [id number] 2.16.84 [id number] 1955 Unknown [id number] 2.16.8 [id number] Unknown [id number] 2.16.84 [id number] Social History Date Type Detail Facility Tobacco smoking stat [facility] Unknown if ever smoked [facility] Work Phone: Start: 1955 Sex Assigned At Female [facility] Start: 11-24-2023 Tobacco smoking status Never s moked tobacco (finding) [facility] Tobacco smoking status Never Gener al Surgery [facility] Sex Assigned At Female [facility] Medical Equipment Procedure Code Equipment Code Equipment [...] - Not Given Patient Refuses [facility] Comment on above: Result Comment: Elec tronically Signed By: ERMA QUINONEZ, Jai Amado\Date and Time Signed: 11/24/23 16:31 EDT Evaluation + Plan note Note Date & Type Note Facility Evaluation + Plan note No data available for this section [facility] [place] Evaluation note Note Date & Type Note Facility Evaluation note No assessment information availa [facility] Work Phone: Hospital Discharge instructions Note Date & Type Note Facility Hospital Discharge instructions No data available for this section [facility] [place] Progress note Note Date & Type Note Facility Progress note No data available for this section [facility] [place] Summary Purpose Family History No Family History Records FoundNo Family History Records FoundNo Family History Records Found No data available for this section No Family History Records Found Advance Directives No Advanced Directives Records FoundNo Advanced Directives Records FoundNo Advanced Directives Records FoundNo Advanced Directives Records Found Additional Source Comments INFORMATION SOURCE (unrecogn ized section and content) DATE CREATED AUTHOR 08/22/2018 [facility] DATE CREATED AUTHOR AUTHOR'S ORGANIZ ATION 04/25/[address] [facility] DATE CREATED AUTHOR AUTHOR'S ORGANIZ ATION 05/15/2023 [facility] DATE CREATED AUTHOR AUTHOR'S ORGANIZ ATION 11/26/2023 [facility] Goals (unrecognized section and content) Goals may be documented in a n alternate section No data available for this section Patient Care team informatio n (unrecognized section and content) Personnel Name: Kyara Castro MD Address: Address: [address] [place] [address] FOR RECORDS PERTAINING TO PATIENTS WHO ARE [...] BE BASED ON THE PRIMARY CLINICAL RECORDS. [facility] [employer] [facility]. provides no warranty or guarantee of the accuracy or completeness of information in this document.
[2024-01-12 07:30] VITALS: BP 133/72; PULSE 64; TEMP 35.8; O2SAT 98; BMI 26.8
[2024-01-12] MEDS: LACTATED RINGER'S SOLUTION 1,000 ML 50 ML IV (07:41)
[2024-01-12 09:06] VITALS: BP 103/67; PULSE 55; O2SAT 97
[2024-01-12 09:24] VITALS: BP 133/90; PULSE 53; O2SAT 97
== END 2024-01-12 09:39 | disposition home or self-care (01) ==
PROVIDERS: PCP Family Medicine; Visit Provider Surgery
PROC: (CPT G0121; principal; 2024-01-12 08:20)
DX: Z12.11 Encounter for screening for malignant neoplasm of colon (principal); I48.91 Unspecified atrial fibrillation; Z90.710 Acquired absence of both cervix and uterus; J45.909 Unspecified asthma, uncomplicated; Z85.118 Personal history of other malignant neoplasm of bronchus and lung; E78.00 Pure hypercholesterolemia, unspecified; Z90.2 Acquired absence of lung [part of]; I10 Essential (primary) hypertension
CPT/HCPCS: G0121

== ENCOUNTER 2024-03-30 07:13 | Outpatient (OUT) | payer MEDICARE, OTHER, SELFPAY ==
--- OUTSIDE RECORDS SUMMARY | 2024-03-30 07:17 | XMS_ITS | CCD ---
Author Organization [facility] Inform ion [facility] Care Team Providers Care Political Geographer Name Role Phone Margaret Dodge Unavailable Kyara Burdick Unavailable Unavailable Margaret Dodge Unavailable Unavailable Kyara Castro Unavailable Unavailable MIKHAILY, DR SPARROW Primary Care Unavailable HOY, DR SPARROW Admitting Unavailable HOY, DR SPARROW Attending Unavailable HOY, DR SPARROW Consulting Unavailable MIKHAILY, DR SPARROW Primary Care Unavailable MIKHAILY, DR SPARROW Admitting Unavailable MIKHAILY, DR SPARROW Attending Unavailable MIKHAILY, DR SPARROW Consulting Unavailable MIKHAILY, DR SPARROW Primary Care Unavailable HOY, DR SPARROW Admitting Unavailable HOY, DR SPARROW Attending Unavailable WEST, DR GABRIEL Vicente Consulting Unavailable Kyara Castro Primary Care Unavailable Sahil Balderas Attending Unavailable Sahil Balderas Admitting Unavailable Kyara Castro Primary Care Physician Eliel Haines Attending Unavaila Kyara Burch Referring Unavailable Jai RITCHIE Attending Unavailable Jai RITCHIE Attending Unavailable Allergies Allergy Classification Reported Allergen(s) Allergy Type Date of Onset Reaction(s) Facility (2 sources) Sertraline Drug Allergy 7 [facility] Repository (3 sources) Ciprofloxacin; Translations: [ciprofloxacin] Drug Allergy 8 Eruption of skin (disorder) [facility] (1 source) Ciprofloxacin; Translations: [Cipro] Drug Allergy [facility] Repository Medications Current Medications Medication Drug Class(es) [...] Test Name Value Interpretation Reference Range Facility Outside Colonoscopyon 2023 Outside Colonoscopy [id number] .[facility] Reminderson 01-13-2024 Reminders - From: Henny Brown LPN To: Aaron - Clinical; Sent: 01/13/2024 16:25:22 EDT Show up: 12/12/2033 07:00:00 EDT Subject: colonoscopy recall Due Date/Time: 01/11/2034 07:00:00 EDT Reminder/Recall Patient due for screening colonoscopy 01/11/2034. [facility] Consent for Procedure/Surger yon 11-25-2023 Consent for Procedure/Surgery [id number] .[facility] Facesheeton 11-25-2023 Facesheet [id number] .[facility] Ambulatory Visit Summaryon 0 11-24-2023 Ambulatory Visit Summary ADRIEN STATON Steve :1955 Visit Date:11/24/2023 Ambulatory Visit Instructions Your Care Team Attending Physician - ERMA QUINONEZ, Jai Jose Primary Care Physician - Kyara Castro MD [...] for choosing us for your care. Normal [facility] Physician Referralon 024 Physician Referral [id number] .[facility] Reminderson 06-29-2023 Reminders - From: Jennifer Calhoun MA To: Jennifer Calhoun MA; Sent: 06/24/2023 11:34:21 EDT Show up: 06/24/2023 11:34:00 EDT Subject: colon recall Reminder Message [address] Barger 06/23/13 first recall letter sent Patient refused appointment and is going somewhere else. Normal [facility] Patient Letter FTon 2022 Patient Letter [facility] June 24, 2023 ADRIEN WILD [address] [place] [id number] : 1955 Dear Adrien, This is a reminder that you are due for an appointment with [facility]. Please contact our office at [phone] to schedule your 10 year colon recall Thank you, [facility] Normal [facility] CT ABDOMEN WO/W CONon 2021 CT ABDOMEN [...] by: GABRIEL BOND Date: 2022-04-23 09:17 Normal [facility] MG MAMM SCREEN 3D JAYSON CADon 04-23-2022 MG MAMM SCREEN 3D JAYSON CAD Patient: ADRIEN STATON Exam Date: 04/23/2022 : 1955 Gender:F Ordering : DR KYARA CASTRO . Admission #: [id number] Family : Order #: [id number] CLICK HERE TO VIEW EXAM RADIOLOGY REPORT [...] prostate cancer at age 57. LOCATION: [facility] BREAST COMPOSITION: Heterogeneously dense,which may obscure [...] MD on 04/23/2022 at 10:43 Normal [facility] CBC AUTO DIFFon 04-10-2022 BASO # 0.0 103/ul Normal 0.0-0.1 [facility] Comment on above: Performed By: #### C BC #### [facility] [address] [place] [address] Dr. Mariama Becerra Basophils/100 WBC (Bld) 0.6 % Normal 0.2-2.0 [facility] Comment on above: Performed By: #### C BC #### [facility] [address] [place] [address] Dr. Mariama Becerra EO # 0.1 103/ul Normal 0.0-0.7 [facility] Comment on above: Performed By: #### C BC #### [facility] [address] [place] [address] Dr. Mariama Becerra Eosinophils/100 WBC (Bld) 1.5 % Normal 0.9-7.0 [facility] Comment on above: Performed By: #### C BC #### [facility] [address] [place] [address] Dr. Mariama Becerra Erythrocyte distribution width (RBC) [Ratio] 12.7 % Normal 11.0-15.0 [facility] Comment on above: Performed By: #### C BC #### [facility] [address] [place] [address] Dr. Mariama Becerra Hematocrit (Bld) [Volume fraction] 40.3 % Normal 36.0-48.0 [facility] Comment on above: Performed By: #### C BC #### [facility] [address] [place] [address] Dr. Mariama Becerra Hemoglobin (Bld) [Mass/Vol] 13.6 g/dL Normal 12.0-16.0 [facility] Comment on above: Performed By: #### C BC #### [facility] [address] [place] [address] Dr. Mariama Becerra IG # 0.02 10e3/ul Normal 0.00-0.03 [facility] Comment on above: Performed By: #### C BC #### [facility] [address] [place] [address] Dr. Mariama Becerra IG % 0.4 % Normal 0.0-0.5 [facility] Comment on above: Performed By: #### C BC #### [facility] [address] [place] [address] Dr. Mariama Becerra LYMPH # 1.9 103/ul Normal 1.2-3.8 [facility] Comment on above: Performed By: #### C BC #### [facility] [address] [place] [address] Dr. Mariama Becerra Lymphocytes/100 WBC (Bld) 34.9 % Normal 20.5-60.0 [facility] Comment on above: Performed By: #### C BC #### [facility] [address] [place] [address] Dr. Mariama Becerra MANUAL DIFF REQ NO Normal [facility] Comment on above: Performed By: #### C BC #### [facility] [address] [place] [address] Dr. Mariama Becerra MCH (RBC) [Entitic mass] 29.4 pg Normal 26.7-34.0 [facility] Comment on above: Performed By: #### C BC #### [facility] [address] [place] [address] Dr. Mariama Becerra MCHC (RBC) [Mass/Vol] 33.7 g/dL Normal 29.9-35.2 [facility] Comment on above: Performed By: #### C BC #### [facility] [address] [address] [address] Mariama Becerra MCV (RBC) [Entitic vol] 87.0 fL Normal 81.0-99.0 [facility] Comment on above: Performed By: #### C BC #### [facility] [address] [address] [address] Mariama Becerra MONO # 0.6 103/ul Normal 0.3-0.8 [facility] Comment on above: Performed By: #### C BC #### [facility] [address] [place] [address] Dr. Mariama Becerra Monocytes/100 WBC (Bld) 11.2 % Normal 1.7-12.0 [facility] Comment on above: Performed By: #### C BC #### [facility] [address] [place] [address] Dr. Mariama Becerra NEUT # 2.8 103/ul Normal 1.4-6.5 [facility] Comment on above: Performed By: #### C BC #### [facility] [address] [place] [address] Dr. Mariama Becerra Neutrophils/100 WBC (Bld) 51.4 % Normal 43.0-75.0 [facility] Comment on above: Performed By: #### C BC #### [facility] [address] [place] [address] Dr. Mariama Becerra Platelet mean volume (Bld) [Entitic vol] 9.9 fL Normal 9.5-13.5 [facility] Comment on above: Performed By: #### C BC #### [facility] [address] [place] [address] Dr. Mariama Becerra PLT 217 103/ul Normal 150-450 [facility] Comment on above: Performed By: #### C BC #### [facility] [address] [place] [address] Dr. Mariama Becerra RBC 4.63 106/ul Normal 4.20-5.40 [facility] Comment on above: Performed By: #### C BC #### [facility] [address] [place] [address] Dr. Mariama Becerra WBC 5.4 103/ul Normal 4.0-11.0 [facility] Comment on above: Performed By: #### C BC #### [facility] [address] [place] [address] Dr. Mariama Becerra FREE THYROXINE INDEX T7on FTI 2.81 Normal 1.30-4.50 [facility] Comment on above: Performed By: #### T SH, T7, LIPID, CMP #### [facility] [address] [place] [address] Dr. Mariama Becerra T3U 33.0 % Normal 30.0-39.0 [facility] Comment on above: Performed By: #### T SH, T7, LIPID, CMP #### [facility] [address] [place] [address] Dr. Mariama Becerra T4 [Mass/Vol] 8.50 ug/dL Normal 4.80-13.90 [facility] Comment on above: Performed By: #### T SH, T7, LIPID, CMP #### [facility] [address] [place] [address] Dr. Mariama Becerra GLYCOHEMOGLOBIN A1Con 2021 ADA RECOMMENDATION SEE BELOW Normal [facility] Comment on above: Result Comment: ADA RECOMMENDED LIMIT 4.0 - 6.0 ADA THERAPEUTIC TARGET < 7.0 ACTION SUGGESTED > 7.0 Performed By: #### A 1C #### [facility] [address] [place] [address] Dr. Mariama Becerra Glucose [Mass/Vol] 117 mg/dL Normal [facility] Comment on above: Performed By: #### A 1C #### [facility] [address] [place] [address] Dr. Mariama Becerra HbA1c (Bld) [Mass fraction] 5.7 % Normal 4.5-6.2 [facility] Comment on above: Performed By: #### A 1C #### [facility] [address] [address] [address] Mariama Becerra IRONon 04-10-2022 Iron [Mass/Vol] 88.0 ug/dL Normal 50.0-170.0 [facility] Comment on above: Performed By: #### I ANGEL #### [facility] [address] [place] [address] Dr. Mariama Becerra LIPID PROFILEon 04-10-2022 CHOL-HDL RATIO NORM SEE BELOW Normal [facility] Comment on above: Result Comment: 3.3 - 4.4 LOW RISK 4.4 - 7.1 AVERAGE RISK 7.1 - 11.0 MODERATE RISK >11.0 HIGH RISK Performed By: #### T SH, T7, LIPID, CMP #### [facility] [address] [place] [address] Dr. Mariama Becerra Cholesterol [Mass/Vol] 136 mg/dL Normal <=200 [facility] Comment on above: Performed By: #### T SH, T7, LIPID, CMP #### [facility] [address] [place] [address] Dr. Mariama Becerra Cholesterol in HDL [Mass/Vol] 63 mg/dL Critically high 40-60 [facility] Comment on above: Performed By: #### T SH, T7, LIPID, CMP #### [facility] [address] [place] [address] Dr. Mariama Becerra Cholesterol in LDL [Mass/Vol] 58.8 mg/dL Normal [facility] Comment on above: Performed By: #### T SH, T7, LIPID, CMP #### [facility] [address] [place] [address] Dr. Mariama Becerra Cholesterol.total/Cho lesterol in HDL [Mass ratio] 2.2 {ratio} Normal [facility] Comment on above: Performed By: #### T SH, T7, LIPID, CMP #### [facility] [address] [place] [address] Dr. Mariama Becerra HDL NORMAL > or = 60 mg/dl - LO W CARDIOVASCULAR RISK <40 mg/dl - HIGH CARDIOVASCULAR RISK Normal [facility] Comment on above: Performed By: #### T SH, T7, LIPID, CMP #### [facility] [address] [address] [address] Mariama Becerra LDL CALC NORMAL SEE BELOW Normal [facility] Comment on above: Result Comment: <100 mg/dl OPTIMAL 100 - 129 mg/dl NEAR OR ABOVE OPTIMAL 130 - 159 mg/dl BORDERLINE HIGH 160 - 189 mg/dl HIGH >190 mg/dl VERY HIGH Performed By: #### T SH, T7, LIPID, CMP #### [facility] [address] [address] [address] Mariama Becerra Triglyceride [Mass/Vol] 71 mg/dL Normal <=150 [facility] Comment on above: Performed By: #### T SH, T7, LIPID, CMP #### [facility] [address] [address] [address] Mariama Becerra VLDL CALC 14.2 mg/dL Normal [facility] Comment on above: Performed By: #### T SH, T7, LIPID, CMP #### [facility] [address] [address] [address] Mariama Becerra PROF 14(COMP METB)on 022 Albumin [Mass/Vol] 4.2 g/dL Normal 3.4-5.0 [facility] Comment on above: Performed By: #### T SH, T7, LIPID, CMP #### [facility] [address] [place] [address] Dr. Mariama Becerra Albumin/Globulin [Mass ratio] 1.3 {ratio} Normal [facility] Comment on above: Performed By: #### T SH, T7, LIPID, CMP #### [facility] [address] [address] [address] Mariama Becerra ALP [Catalytic activity/Vol] 65 U/L Normal 46-116 [facility] Comment on above: Performed By: #### T SH, T7, LIPID, CMP #### [facility] [address] [place] [address] Dr. Mariama Becerra ALT [Catalytic activity/Vol] 20 U/L Normal 14-59 [facility] Comment on above: Performed By: #### T SH, T7, LIPID, CMP #### [facility] [address] [address] [address] Mariama Becerra Anion gap [Moles/Vol] 8.1 mmol/L Normal [facility] Comment on above: Performed By: #### T SH, T7, LIPID, CMP #### [facility] [address] [address] [address] Mariama Becerra AST [Catalytic activity/Vol] 15 U/L Normal 15-37 [facility] Comment on above: Performed By: #### T SH, T7, LIPID, CMP #### [facility] [address] [address] [address] Mariama Becerra Bilirubin [Mass/Vol] 0.7 mg/dL Normal 0.2-1.0 [facility] Comment on above: Performed By: #### T SH, T7, LIPID, CMP #### [facility] [address] [place] [address] Dr. Mariama Becerra Calcium [Mass/Vol] 9.2 mg/dL Normal 8.5-10.1 [facility] Comment on above: Performed By: #### T SH, T7, LIPID, CMP #### [facility] [address] [address] [address] Mariama Becerra Chloride [Moles/Vol] 106 mmol/L Normal 98-107 [facility] Comment on above: Performed By: #### T SH, T7, LIPID, CMP #### [facility] [address] [address] [address] Mariama Becerra CO2 [Moles/Vol] 32.5 mmol/L Critically high 21.0-32.0 [facility] Comment on above: Performed By: #### T SH, T7, LIPID, CMP #### [facility] [address] [address] [address] Mariama Becerra Creatinine [Mass/Vol] 0.71 mg/dL Normal 0.55-1.02 [facility] Comment on above: Performed By: #### T SH, T7, LIPID, CMP #### [facility] [address] [address] [address] Mariama Becerra EGFR-AF MOZAMBICAN >60 Normal >=[address] [facility] Comment on above: Performed By: #### T SH, T7, LIPID, CMP #### [facility] [address] [place] [address] Dr. Mariama Becerra EGFR-NON AF MOZAMBICAN >60 Normal >=60 [facility] Comment on above: Performed By: #### T SH, T7, LIPID, CMP #### [facility] [address] [place] [address] Dr. Mariama Becerra Globulin (S) [Mass/Vol] 3.2 g/dL Normal [facility] Comment on above: Performed By: #### T SH, T7, LIPID, CMP #### [facility] [address] [place] [address] Dr. Mariama Becerra Glucose [Mass/Vol] 99 mg/dL Normal 74-106 [facility] Comment on above: Performed By: #### T SH, T7, LIPID, CMP #### [facility] [address] [place] [address] Dr. Mariama Becerra Potassium [Moles/Vol] 4.6 mmol/L Normal 3.5-5.1 [facility] Comment on above: Performed By: #### T SH, T7, LIPID, CMP #### [facility] [address] [place] [address] Dr. Mariama Becerra Protein [Mass/Vol] 7.4 g/dL Normal 6.4-8.2 [facility] Comment on above: Performed By: #### T SH, T7, LIPID, CMP #### [facility] [address] [place] [address] Dr. Mariama Becerra Sodium [Moles/Vol] 142 mmol/L Normal 136-145 [facility] Comment on above: Performed By: #### T SH, T7, LIPID, CMP #### [facility] [address] [place] [address] Dr. Mariama Becerra Urea nitrogen [Mass/Vol] 12.0 mg/dL Normal 7.0-18.0 [facility] Comment on above: Performed By: #### T SH, T7, LIPID, CMP #### [facility] [address] [place], [place] [address] Dr. Mariama Becerra Urea nitrogen/Creatinine [Mass ratio] 16.9 mg/mg Normal [facility] Comment on above: Performed By: #### T SH, T7, LIPID, CMP #### [facility] [address] [place], [place] [address] Dr. Mariama Becerra TSHon 04-10-2022 TSH 1.909 uIU/mL Normal 0.358-3.740 [facility] Comment on above: Performed By: #### T SH, T7, LIPID, CMP #### [facility] [address] [place], [place] [address] Dr. Mariama Becerra Vital Signs Date Time Vital Sign Value Performing Clinician Faci elba 11-24-2023 15:35-0400 Blood Pressure Location Jai NILL [facility] [place] 11-24-2023 15:35-0400 Diastolic blood pressure 74 mm[Hg] Jai NILL [facility] [place] 11-24-2023 15:35-0400 Heart rate 72 /min Jai NILL [facility] [place] 11-24-2023 15:35-0400 Respiratory rate 16 /min Jai NILL [facility] 11-24-2023 15:35-0400 Systolic blood pressure 124 mm[Hg] Jai NILL [facility] Encounters Encounter Date Encounter Type Care Provider Facility Start: 01-12-2024 End: 01-13-2024 ambulatory Jai R NILL Facility:CD:[id number] Start: 11-24-2023 End: 11-25-2023 ambulatory Kyara Castro Facility:[facility] Start: 11-24-2023 End: 11-24-2023 Patient encounter procedure Jai R NILL [facility] Start: 10-29-2023 ambulatory Eliel Carcamo ty:[facility] Start: 06-24-2023 ambulatory Eliel Haines Facility:[facility] Start: 04-23-2022 End: 04-24-[address] KYARA CASTRO Facility:[facility] Start: 04-16-2022 Encounter for genera l adult medical examination without abnormal findings DR KYARA CASTRO [facility] Start: 04-10-2022 End: 04-11-[address] KYARA CASTRO Facility:[facility] Start: 04-10-2022 End: 04-11-2022 Encounter for general adult medical examination without abnormal findings DR KYARA CASTRO Facility:[facility] Start: 03-19-[address] KYARA CASTRO Facility :[facility] Start: 11-28-2019 End: 11-28-2019 ambulatory Kyara Castro Facility:[facility] Start: 07-29-2018 Patient encounter procedure Margaret Dodge Facility:[id number] Start: 07-21-2018 Patient encounter procedure Margaret Dodge Facility:[id number] Procedures Date Procedure Procedure Detail Performing Clinician Start: 06-23-2013 Colonoscopy Jai RAND Abdominal hysterectomy Gabino fish NILL Biopsy of lung Jai NILL Excision of lipoma of back Kuldeep ARGUELLESL Comment on above: x 2 Lobectomy of lower l obe of right lung Jai NILL Immunizations Immunization Date Immunization Notes Care Provider Fa cility NEGATED: Highlighted row has not occurred!11-24-2023 influenza virus vaccine, unspecified formulation Jai ARGUELLESL [facility] [place] Payers Date Payer Category Payer Unknown [id number] 2023 Medicare [id number] 2019 Medicaid [id number] 1957 Self-pay 1957 Unknown [id number] 1955 Unknown [id number] 2.16. [id number] 1955 Unknown [id number] 2.16. [id number] 1955 Unknown [id number] 2.16.84 [id number] 1955 Unknown [id number] 2.16.84 [id number] 1955 Unknown [id number] 2.16.84 [id number] 1955 Unknown [id number] 2.16.8 [id number] 1955 Unknown [id number] 2.16.8 [id number] Unknown [id number] 2.16.84 [id number] Social History Date Type Detail Facility Tobacco smoking stat [facility] Unknown if ever smoked [facility] Work Phone: Start: 1955 Sex Assigned At Female F [facility] Start: 11-24-2023 Tobacco smoking status Never s moked tobacco (finding) [facility] [place] Tobacco smoking status Never [facility] [place] Sex Assigned At Female [facility] Medical Equipment Procedure Code Equipment Code [...] vaccine, inactivated - Not Given Patient Refuses [facility] Comment on above: Result Comment: Elec tronically Signed By: ERMA QUINONEZ, Jai Amado\Date and Time Signed: 11/24/23 16:31 EDT Evaluation + Plan note Note Date & Type Note Facility Evaluation + Plan note No data available for this section [facility] [place] Evaluation note Note Date & Type Note Facility Evaluation note [facility] Hospital Discharge instructions Note Date & Type Note Facility Hospital Discharge instructions No data available for this section [facility] [place] Progress note Note Date & Type Note Facility Progress note No data available for this section [facility] [place] Summary Purpose Family History No Family History Records FoundNo Family History Records FoundNo Family History Records Found No data available for this section No Family History Records Found Advance Directives No Advanced Directives Records FoundNo Advanced Directives Records FoundNo Advanced Directives Records FoundNo Advanced Directives Records Found Additional Source Comments INFORMATION SOURCE (unrecogn ized section and content) DATE CREATED AUTHOR 08/22/2018 [facility] DATE CREATED AUTHOR AUTHOR'S ORGANIZ ATION 04/25/2022 [facility] DATE CREATED AUTHOR AUTHOR'S ORGANIZ ATION 05/15/2023 [facility] DATE CREATED AUTHOR AUTHOR'S ORGANIZ ATION 01/18/2024 [facility] Goals (unrecognized section and content) Goals may be documented in a n alternate section No data available for this section Patient Care team informatio n (unrecognized section and content) Personnel Name: Kyara Castro MD Address: Address: [address] [place] [address] FOR RECORDS PERTAINING TO PATIENTS WHO ARE [...] BE BASED ON THE PRIMARY CLINICAL RECORDS. [facility]. provides no warranty or guarantee of the accuracy or completeness of information in this document.
[2024-03-30 07:35] LABS: Basophils Percent Auto 0.8 % (0.2-2.0); Eosinophils Absolute Auto 0.1 10^3/uL (0.0-0.7); Eosinophils Percent Auto 2.1 % (0.9-7.0); Hemoglobin 14.2 g/dL (12.0-16.0); Lymphocytes Absolute Auto 2.1 10^3/uL (1.2-3.8); Lymphocytes Percent Auto 41.4 % (20.5-60.0); Mean Corpuscular Hemoglobin 29.4 pg (26.7-34.0); Mean Platelet Volume 10.2 fL (9.5-13.5); Monocytes Absolute Auto 0.6 10^3/uL (0.3-0.8); Monocytes Percent Auto 11.3 % (1.7-12.0); Neutrophils Absolute Auto 2.3 10^3/uL (1.4-6.5); Neutrophils Percent Auto 44.4 % (43.0-75.0); Platelet Count 221 10^3/uL (150-450); Red Blood Count 4.83 10^6/uL (4.20-5.40); Red Cell Distribution Width 12.7 % (11.0-15.0); White Blood Count 5.2 10^3/uL (4.0-11.0)
== END 2024-03-30 07:14 | disposition home or self-care (01) ==
LOC: LAB 07:15
PROVIDERS: PCP Family Medicine
DX: Z01.812 Encounter for preprocedural laboratory examination (principal)
CPT/HCPCS: 36415; 85025

== ENCOUNTER 2024-07-14 15:04 | Outpatient (OUT) | payer MEDICARE, OTHER, SELFPAY ==
--- NOTE | 2024-07-14 | XR_ITS ---
The [address] [address] Patient Name: ADRIEN STATON MRN: [id number] date: 1955 Sex: F Assigned Patient [facility] Current Patient Location: Accession/Order Number: [id number] Exam Date: 07/14/2024 15:17 Report Date: 07/15/2024 07:56 At the request of: DARRYL MARKHAM Procedure: XR tibia fibula LT 2V PROCEDURE: XR tibia fibula LT 2V HISTORY: M79.605, Left leg pain COMPARISON: None. FINDINGS: BONES:No fracture, acute abnormality, or significant arthropathy. SOFT TISSUES:No visible soft tissue swelling. EFFUSION:None visible. OTHER: Negative. XR/XR tibia fibula LT 2V IMPRESSION: 1. No acute bone abnormality, lesion, or significant degenerative joint disease. Electronically authenticated by: SARWAT HOGAN Date: 07/15/2024 07:56
--- OUTSIDE RECORDS SUMMARY | 2024-07-14 15:14 | XMS_ITS | CCD ---
Author Organization [facility] Inform ion [facility] Care Team Providers Care Eligibility And Occupancy Interviewer Name Role Phone Margaret Dodge Unavailable Kyara [...] Admitting Unavailable Kyara Castro Primary Care Physician [phone] Eliel Haines Attending Unavaila Kyara Burch Referring Unavailable Jai RITCHIE Attending Unavailable Jai RITCHIE Attending Unavailable Allergies Allergy Classification Reported Allergen(s) Allergy Type Date of Onset Reaction(s) Facility (2 sources) Sertraline Drug Allergy 7 [facility] Repository (3 sources) Ciprofloxacin; Translations: [ciprofloxacin] Drug Allergy 8 Eruption of skin (disorder) [facility] (1 source) Ciprofloxacin; Translations: [Cipro] Drug Allergy [facility] Repository Medications Current Medications Medication Drug Class(es) [...] Range Facility Outside Colonoscopyon 2023 Outside Colonoscopy [id number] .00TIFF [facility] Reminderson 01-13-2024 Reminders - From: Henny Brown LPN To: Aaron - Clinical; Sent: 01/13/2024 16:25:22 EDT Show up: 12/12/2033 07:00:00 EDT Subject: colonoscopy recall Due Date/Time: 01/11/2034 07:00:00 EDT Reminder/Recall Patient due for screening colonoscopy 01/11/2034. [facility] Consent for Procedure/Surger yon 11-25-2023 Consent for Procedure/Surgery [id number] .00TIFF [facility] Facesheeton 11-25-2023 Facesheet [id number] .00TIFF [facility] Ambulatory Visit Summaryon 0 11-24-2023 Ambulatory [...] for choosing us for your care. Normal [facility] Physician Referralon 024 Physician Referral [id number] .[id number] [facility] Reminderson 06-29-2023 Reminders - From: Jennifer Calhoun MA To: Jennifer Calhoun MA; Sent: 06/24/2023 11:34:21 EDT Show up: 06/24/2023 11:34:00 EDT Subject: colon recall Reminder Message [address] Barger 06/23/13 first recall letter sent Patient refused appointment and is going somewhere else. Normal [facility] Patient Letter FTon 2022 Patient [place] [facility] [place] ADRIEN WILD [address] [place] [id number] : 1955 Dear Adrien, This is a reminder that you are due for an appointment with [facility]. Please contact our office at [phone] to schedule your 10 year colon recall Thank you, [facility] Normal [facility] CT ABDOMEN WO/W CONon 2021 CT ABDOMEN [...] by: GABRIEL BOND Date: 2022-04-23 09:17 Normal [facility] MG MAMM SCREEN 3D JAYSON CADon 04-23-2022 MG MAMM SCREEN 3D JAYSON CAD Patient: ADRIEN STATON Exam Date: 04/23/2022 : 1955 Gender:F Ordering : DR KYARA CASTRO . Admission #: [id number] Family : Order #: [id number] CLICK HERE TO VIEW EXAM RADIOLOGY REPORT [...] prostate cancer at age 57. LOCATION: [facility] BREAST COMPOSITION: Heterogeneously dense,which may obscure [...] MD on 04/23/2022 at 10:43 Normal [facility] CBC AUTO DIFFon 04-10-2022 BASO # 0.0 103/ul Normal 0.0-0.1 [facility] Comment on above: Performed By: #### C BC #### [facility] [address] [place] [address] Dr. Mariama Becerra Basophils/100 WBC (Bld) 0.6 % Normal 0.2-2.0 [facility] Comment on above: Performed By: #### C BC #### [facility] [address] [place] [address] Dr. Mariama Becerra EO # 0.1 103/ul Normal 0.0-0.7 [facility] Comment on above: Performed By: #### C BC #### [facility] [address] [place] [address] Dr. Mariama Becerra Eosinophils/100 WBC (Bld) 1.5 % Normal 0.9-7.0 [facility] Comment on above: Performed By: #### C BC #### [facility] [address] [place] [address] Dr. Mariama Becerra Erythrocyte distribution width (RBC) [Ratio] 12.7 % Normal 11.0-15.0 [facility] Comment on above: Performed By: #### C BC #### [facility] [address] [place] [address] Dr. Mariama Becerra Hematocrit (Bld) [Volume fraction] 40.3 % Normal 36.0-48.0 [facility] Comment on above: Performed By: #### C BC #### [facility] [address] [place] [address] Dr. Mariama Becerra Hemoglobin (Bld) [Mass/Vol] 13.6 g/dL Normal 12.0-16.0 [facility] Comment on above: Performed By: #### C BC #### [facility] [address] [place] [address] Dr. Mariama Becerra IG # 0.02 10e3/ul Normal 0.00-0.03 [facility] Comment on above: Performed By: #### C BC #### [facility] [address] [place] [address] Dr. Mariama Becerra IG % 0.4 % Normal 0.0-0.5 [facility] Comment on above: Performed By: #### C BC #### [facility] [address] [place] [address] Dr. Mariama Becerra LYMPH # 1.9 103/ul Normal 1.2-3.8 [facility] Comment on above: Performed By: #### C BC #### [facility] [address] [place] [address] Dr. Mariama Becerra Lymphocytes/100 WBC (Bld) 34.9 % Normal 20.5-60.0 [facility] Comment on above: Performed By: #### C BC #### [facility] [address] [place] [address] Dr. Mariama Becerra MANUAL DIFF REQ NO Normal [facility] Comment on above: Performed By: #### C BC #### [facility] [address] [place] [address] Dr. Mariama Becerra MCH (RBC) [Entitic mass] 29.4 pg Normal 26.7-34.0 [facility] Comment on above: Performed By: #### C BC #### [facility] [address] [place] [address] Dr. Mariama Becerra MCHC (RBC) [Mass/Vol] 33.7 g/dL Normal 29.9-35.2 [facility] Comment on above: Performed By: #### C BC #### [facility] [address] [address] [address] Mariama Becerra MCV (RBC) [Entitic vol] 87.0 fL Normal 81.0-99.0 [facility] Comment on above: Performed By: #### C BC #### [facility] [address] [address] [address] Mariama Becerra MONO # 0.6 103/ul Normal 0.3-0.8 [facility] Comment on above: Performed By: #### C BC #### [facility] [address] [place] [address] Dr. Mariama Becerra Monocytes/100 WBC (Bld) 11.2 % Normal 1.7-12.0 [facility] Comment on above: Performed By: #### C BC #### [facility] [address] [place] [address] Dr. Mariama Becerra NEUT # 2.8 103/ul Normal 1.4-6.5 [facility] Comment on above: Performed By: #### C BC #### [facility] [address] [place] [address] Dr. Mariama Becerra Neutrophils/100 WBC (Bld) 51.4 % Normal 43.0-75.0 [facility] Comment on above: Performed By: #### C BC #### [facility] [address] [place] [address] Dr. Mariama Becerra Platelet mean volume (Bld) [Entitic vol] 9.9 fL Normal 9.5-13.5 [facility] Comment on above: Performed By: #### C BC #### [facility] [address] [place] [address] Dr. Mariama Becerra PLT 217 103/ul Normal 150-450 [facility] Comment on above: Performed By: #### C BC #### [facility] [address] [place] [address] Dr. Mariama Becerra RBC 4.63 106/ul Normal 4.20-5.40 [facility] Comment on above: Performed By: #### C BC #### [facility] [address] [place] [address] Dr. Mariama Becerra WBC 5.4 103/ul Normal 4.0-11.0 [facility] Comment on above: Performed By: #### C BC #### [facility] [address] [place] [address] Dr. Mariama Becerra FREE THYROXINE INDEX T7on FTI 2.81 Normal 1.30-4.50 [facility] Comment on above: Performed By: #### T SH, T7, LIPID, CMP #### [facility] [address] [place] [address] Dr. Mariama Becerra T3U 33.0 % Normal 30.0-39.0 [facility] Comment on above: Performed By: #### T SH, T7, LIPID, CMP #### [facility] [address] [place] [address] Dr. Mariama Becerra T4 [Mass/Vol] 8.50 ug/dL Normal 4.80-13.90 [facility] Comment on above: Performed By: #### T SH, T7, LIPID, CMP #### [facility] [address] [place] [address] Dr. Mariama Becerra GLYCOHEMOGLOBIN A1Con 2021 ADA RECOMMENDATION SEE BELOW Normal [facility] Comment on above: Result Comment: ADA RECOMMENDED LIMIT 4.0 - 6.0 ADA THERAPEUTIC TARGET < 7.0 ACTION SUGGESTED > 7.0 Performed By: #### A 1C #### [facility] [address] [place] [address] Dr. Mariama Becerra Glucose [Mass/Vol] 117 mg/dL Normal [facility] Comment on above: Performed By: #### A 1C #### [facility] [address] [place] [address] Dr. Mariama Becerra HbA1c (Bld) [Mass fraction] 5.7 % Normal 4.5-6.2 [facility] Comment on above: Performed By: #### A 1C #### [facility] [address] [address] [address] Mariama Becerra IRONon 04-10-2022 Iron [Mass/Vol] 88.0 ug/dL Normal 50.0-170.0 [facility] Comment on above: Performed By: #### I ANGEL #### [facility] [address] [place] [address] Dr. Mariama Becerra LIPID PROFILEon 04-10-2022 CHOL-HDL RATIO NORM SEE BELOW Normal [facility] Comment on above: Result Comment: 3.3 - 4.4 LOW RISK 4.4 - 7.1 AVERAGE RISK 7.1 - 11.0 MODERATE RISK >11.0 HIGH RISK Performed By: #### T SH, T7, LIPID, CMP #### [facility] [address] [place] [address] Dr. Mariama Becerra Cholesterol [Mass/Vol] 136 mg/dL Normal <=200 [facility] Comment on above: Performed By: #### T SH, T7, LIPID, CMP #### [facility] [address] [place] [address] Dr. Mairama Becerra Cholesterol in HDL [Mass/Vol] 63 mg/dL Critically high 40-60 [facility] Comment on above: Performed By: #### T SH, T7, LIPID, CMP #### [facility] [address] [place] [address] Dr. Mariama Becerra Cholesterol in LDL [Mass/Vol] 58.8 mg/dL Normal [facility] Comment on above: Performed By: #### T SH, T7, LIPID, CMP #### [facility] [address] [place] [address] Dr. Mariama Becerra Cholesterol.total/Cho lesterol in HDL [Mass ratio] 2.2 {ratio} Normal [facility] Comment on above: Performed By: #### T SH, T7, LIPID, CMP #### [facility] [address] [place] [address] Dr. Mariama Becerra HDL NORMAL > or = 60 mg/dl - LO W CARDIOVASCULAR RISK <40 mg/dl - HIGH CARDIOVASCULAR RISK Normal [facility] Comment on above: Performed By: #### T SH, T7, LIPID, CMP #### [facility] [address] [address] [address] Mariama Becerra LDL CALC NORMAL SEE BELOW Normal [facility] Comment on above: Result Comment: <100 mg/dl OPTIMAL 100 - 129 mg/dl NEAR OR ABOVE OPTIMAL 130 - 159 mg/dl BORDERLINE HIGH 160 - 189 mg/dl HIGH >190 mg/dl VERY HIGH Performed By: #### T SH, T7, LIPID, CMP #### [facility] [address] [address] [address] Mariama Becerra Triglyceride [Mass/Vol] 71 mg/dL Normal <=150 [facility] Comment on above: Performed By: #### T SH, T7, LIPID, CMP #### [facility] [address] [address] [address] Mariama Becerra VLDL CALC 14.2 mg/dL Normal [facility] Comment on above: Performed By: #### T SH, T7, LIPID, CMP #### [facility] [address] [address] [address] Mariama Becerra PROF 14(COMP METB)on 022 Albumin [Mass/Vol] 4.2 g/dL Normal 3.4-5.0 [facility] Comment on above: Performed By: #### T SH, T7, LIPID, CMP #### [facility] [address] [place] [address] Dr. Mariama Becerra Albumin/Globulin [Mass ratio] 1.3 {ratio} Normal [facility] Comment on above: Performed By: #### T SH, T7, LIPID, CMP #### [facility] [address] [address] [address] Mariama Becerra ALP [Catalytic activity/Vol] 65 U/L Normal 46-116 [facility] Comment on above: Performed By: #### T SH, T7, LIPID, CMP #### [facility] [address] [place] [address] Dr. Mariama Becerra ALT [Catalytic activity/Vol] 20 U/L Normal 14-59 [facility] Comment on above: Performed By: #### T SH, T7, LIPID, CMP #### [facility] [address] [address] [address] Mariama Becerra Anion gap [Moles/Vol] 8.1 mmol/L Normal [facility] Comment on above: Performed By: #### T SH, T7, LIPID, CMP #### [facility] [address] [address] [address] Mariama Becerra AST [Catalytic activity/Vol] 15 U/L Normal 15-37 [facility] Comment on above: Performed By: #### T SH, T7, LIPID, CMP #### [facility] [address] [address] [address] Mariama Becerra Bilirubin [Mass/Vol] 0.7 mg/dL Normal 0.2-1.0 [facility] Comment on above: Performed By: #### T SH, T7, LIPID, CMP #### [facility] [address] [place] [address] Dr. Mariama Becerra Calcium [Mass/Vol] 9.2 mg/dL Normal 8.5-10.1 [facility] Comment on above: Performed By: #### T SH, T7, LIPID, CMP #### [facility] [address] [address] [address] Mariama Becerra Chloride [Moles/Vol] 106 mmol/L Normal 98-107 [facility] Comment on above: Performed By: #### T SH, T7, LIPID, CMP #### [facility] [address] [address] [address] Mariama Becerra CO2 [Moles/Vol] 32.5 mmol/L Critically high 21.0-32.0 [facility] Comment on above: Performed By: #### T SH, T7, LIPID, CMP #### [facility] [address] [address] [address] Mariama Becerra Creatinine [Mass/Vol] 0.71 mg/dL Normal 0.55-1.02 [facility] Comment on above: Performed By: #### T SH, T7, LIPID, CMP #### [facility] [address] [address] [address] Mariama Becerra EGFR-AF PAKISTANI >60 Normal >=60 [facility] Comment on above: Performed By: #### T SH, T7, LIPID, CMP #### [facility] [address] [place] [address] Dr. Mariama Becerra EGFR-NON AF PAKISTANI >60 Normal >=60 [facility] Comment on above: Performed By: #### T SH, T7, LIPID, CMP #### [facility] [address] [place] [address] Dr. Mariama Becerra Globulin (S) [Mass/Vol] 3.2 g/dL Normal [facility] Comment on above: Performed By: #### T SH, T7, LIPID, CMP #### [facility] [address] [place] [address] Dr. Mariama Becerra Glucose [Mass/Vol] 99 mg/dL Normal 74-106 [facility] Comment on above: Performed By: #### T SH, T7, LIPID, CMP #### [facility] [address] [place] [address] Dr. Mariama Becerra Potassium [Moles/Vol] 4.6 mmol/L Normal 3.5-5.1 [facility] Comment on above: Performed By: #### T SH, T7, LIPID, CMP #### [facility] [address] [place] [address] Dr. Mariama Becerra Protein [Mass/Vol] 7.4 g/dL Normal 6.4-8.2 [facility] Comment on above: Performed By: #### T SH, T7, LIPID, CMP #### [facility] [address] [place] [address] Dr. Mariama Becerra Sodium [Moles/Vol] 142 mmol/L Normal 136-145 [facility] Comment on above: Performed By: #### T SH, T7, LIPID, CMP #### [facility] [address] [place] [address] Dr. Mariama Becerra Urea nitrogen [Mass/Vol] 12.0 mg/dL Normal 7.0-18.0 [facility] Comment on above: Performed By: #### T SH, T7, LIPID, CMP #### [facility] [address] [place], [place] [address] Dr. Mariama Becerra Urea nitrogen/Creatinine [Mass ratio] 16.9 mg/mg Normal [facility] Comment on above: Performed By: #### T SH, T7, LIPID, CMP #### [facility] [address] [place], [place] [address] Dr. Mariama Becerra TSHon 04-10-2022 TSH 1.909 uIU/mL Normal 0.358-3.740 [facility] Comment on above: Performed By: #### T SH, T7, LIPID, CMP #### [facility] [address] [place], [place] [address] Dr. Mariama Becerra Vital Signs Date Time Vital Sign Value Performing Clinician Faci [facility]ba 11-24-2023 15:35-0400 Blood Pressure Location Jai NILL [facility] 11-24-2023 15:35-0400 Diastolic blood pressure 74 mm[Hg] Jai NILL [facility] 11-24-2023 15:35-0400 Heart rate 72 /min Jai NILL [facility] 11-24-2023 15:35-0400 Respiratory rate 16 /min Jai NILL [facility] 11-24-2023 15:35-0400 Systolic blood pressure 124 mm[Hg] Jai NILL [facility] Encounters Encounter Date Encounter Type Care Provider Facility Start: 01-12-2024 End: 01-13-2024 ambulatory Jai R NILL Facility:CD:[id number] Start: 11-24-2023 End: 11-25-2023 ambulatory Kyara Castro Facility:[facility] Start: 11-24-2023 End: 11-24-2023 Patient encounter procedure Jai R NILL [facility] Start: 10-29-2023 ambulatory Eliel Carcamo ty:[facility] Start: 06-24-2023 ambulatory Eliel Haines Facility:[facility] Start: 04-23-2022 End: 04-24-[address] KYARA CASTRO Facility:[facility] Start: 04-16-2022 Encounter for genera l adult medical examination without abnormal findings DR KYARA CASTRO [facility] Start: 04-10-2022 End: 04-11-[address] KYARA CASTRO Facility:[facility] Start: 04-10-2022 End: 04-11-2022 Encounter for general adult medical examination without abnormal findings DR KYARA CASTRO Facility:[facility] Start: 03-19-[address] KYARA CASTRO Facility :[facility] Start: 11-28-2019 End: 11-28-2019 ambulatory Kyara Castro Facility:[facility] Start: 07-29-2018 Patient encounter procedure Margaret Dodge Facility:[id number] Start: 07-21-2018 Patient encounter procedure Margaret Dodge Facility:[id number] Procedures Date Procedure Procedure Detail Performing Clinician Start: 06-23-2013 Colonoscopy Jai RAND Abdominal hysterectomy Gabino fihs NILL Biopsy of lung Jai NILL Excision of lipoma of back Kuldeep ARGUELLESL Comment on above: x 2 Lobectomy of lower l obe of right lung Jai NILL Immunizations Immunization Date Immunization Notes Care Provider Fa cility NEGATED: Highlighted row has not occurred!11-24-2023 influenza virus vaccine, unspecified formulation Jai ARGUELLESL [facility] Payers Date Payer Category Payer Unknown [id number] 2023 Medicare [id number] 2019 Medicaid [id number] 1957 Self-pay 1957 Unknown [id number] 1955 Unknown [id number] 2.16. [id number] 1955 Unknown [id number] 2.16. [id number] 1955 Unknown [id number] 2.16.84 [id number] 1955 Unknown [id number] 2.16.84 [id number] 1955 Unknown [id number] 2.16.84 [id number] 1955 Unknown [id number] 2.16.8 [id number] 1955 Unknown [id number] 2.16.8 [id number] Unknown [id number] 2.16.84 [id number] Social History Date Type Detail Facility Tobacco smoking stat [facility] Unknown if ever smoked [facility] Work Phone: Start: 1955 Sex Assigned At Female F [facility] Start: 11-24-2023 Tobacco smoking status Never s moked tobacco (finding) [facility] Tobacco smoking status Never [facility] Sex Assigned At Female [facility] Medical Equipment Procedure Code Equipment Code [...] vaccine, inactivated - Not Given Patient Refuses [facility] Comment on above: Result Comment: Elec tronically Signed By: ERMA QUINONEZ, Jai Amado\Date and Time Signed: 11/24/23 16:31 EDT Evaluation + Plan note Note Date & Type Note Facility Evaluation + Plan note No data available for this section [facility] Evaluation note Note Date & Type Note Facility Evaluation note [facility] Hospital Discharge instructions Note Date & Type Note Facility Hospital Discharge instructions No data available for this section [facility] Progress note Note Date & Type Note Facility Progress note No data available for this section [facility] Summary Purpose Family History No Family History Records FoundNo Family History Records FoundNo Family History Records Found No data available for this section No Family History Records Found Advance Directives No Advanced Directives Records FoundNo Advanced Directives Records FoundNo Advanced Directives Records FoundNo Advanced Directives Records Found Additional Source Comments INFORMATION SOURCE (unrecogn ized section and content) DATE CREATED AUTHOR 08/22/2018 [facility] DATE CREATED AUTHOR AUTHOR'S ORGANIZ ATION 04/25/2022 [facility] DATE CREATED AUTHOR AUTHOR'S ORGANIZ ATION 05/15/2023 [facility] DATE CREATED AUTHOR AUTHOR'S ORGANIZ ATION 01/18/2024 [facility] Goals (unrecognized section and content) Goals may be documented in a n alternate section No data available for this section Patient Care team informatio n (unrecognized section and content) Personnel Name: Kyara Castro MD Address: Address: [address] [place] [address] FOR RECORDS PERTAINING TO PATIENTS WHO ARE [...] BE BASED ON THE PRIMARY CLINICAL RECORDS. [facility]. provides no warranty or guarantee of the accuracy or completeness of information in this document.
== END 2024-07-14 15:05 | disposition home or self-care (01) ==
LOC: RAD 15:05
PROVIDERS: PCP Family Medicine; Visit Provider Nurse Practitioner Family
DX: M79.605 Pain in left leg (principal)
CPT/HCPCS: 73590